=== PATIENT | male | born 1955 | race Caucasian/White ===

== ENCOUNTER → 2018-02-08 08:44 | Outpatient (CLI) | payer OTHER, SELFPAY ==
--- NOTE | 2018-02-08 08:50 | RAD_ITS ---
STUDY: X-RAY - CERVICAL SPINE REASON FOR EXAM: Male, 62 years old. Increasing neck pain. TECHNIQUE: 8 view(s) of the cervical spine were obtained including oblique and flexion and extension views. COMPARISON: None FINDINGS: Normal anterior atlantoaxial articulation. Normal odontoid process. Normal cervical lordosis. There is multi-level endplate spondylosis. Normal disc space heights. Normal visualized intervertebral neuroforamina. The soft tissue structures are unremarkable. RAD/Cerv Spine Obl/Flex/Ext Comp IMPRESSION: Spondylosis. Electronically Signed: Prabhjot Gardner MD at 14:10 EDT Tel [phone], Service support ,
== END ==
PROVIDERS: Family Provider Internal Medicine; PCP Internal Medicine; Visit Provider Internal Medicine
DX: M54.2 Cervicalgia (principal)
CPT/HCPCS: 72052

== ENCOUNTER 2018-03-05 08:00 | Outpatient (RCR) | payer OTHER, SELFPAY ==
--- NOTE | 2018-02-19 19:43 | HP.PTEVAL_ITS ---
Patient's Visit Information SHWETHA CODY is a 62 year old M referred to Physical Therapy by Mag Olmos with a diagnosis of Cervical Pain. Date of Evaluation: 02/19/18 Physical Therapist: Brie Archibald - Visit Plan Frequency: 2x /Week Duration: 4 Weeks Plan: Focus on s/s of scap, posture and modalities as needed for pain - Subjective Subjective: Patient reports that he injured his moya when he was young and fell flat on his back. He has been to the chiropractor for years but recently he doesn't feel like the relief is lasting so his MD suggested that he attempt PT. He has had x-rays which he was unaware of the results (spondylosis multi-level ). At the chiropractor he was just having manipulation adjustments no other treatment. Pain is gradually getting worse. Pain at its worst is an 8/10 agg by computer work- at his best he is 0/10 with eases being mornings and advil. Pain is at the base of his skull. It does not radiate. He reports pain with rotation. NO N/T or change in finger dexterity or lymphedema therapist. No TORREZ, dizziness or blurred vision. Sleep is not disturbed and he sleeps with one pillow. 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 PMHx: DM2, HTN Meds: statin, jardance, metformin, zolify, HTN Med - Objective Posture: Fh, RS, Increased kyphosis- CT Junction has protrusion- can not correct with verbal cues. Gait: rigid- no trunk rotation and little arm swing. Palpation: tender C3-occiput and suboccipitals. ROM: Shoulder/Elbow: WNL Cervical: flexion, ext: WNL. Rotation and SB: decreased by 25% and reports pain with each movement bilaterally. Strength: Cervical: 4+/5 isometrics Shoulder:5/5, Scap: fair. Speical Test: gentle compression: no change in s/s, Distraction: decreases s/s. - Goals Goal 1:: Patient will be I with HEP and progression Goal Time Frame: 4-6 Weeks Goal 2:: Patient will demo full cervical ROM with 0/10 pain Goal Time Frame: 4-6 Weeks Goal 3:: Patient will report 0/10 pain for 1 week Goal Time Frame: 4-6 Weeks - Rehabilitation Potential Physical Therapy Diagnosis: Patient presents with hypomobility- he has decreased strength, flex and muscualar endurance leading to poor posture and increased pain with mobility of the cervical spine Rehabilitation Potential: Fair - Anticipated Interventions Patient/Client Instruction: Educate patient on: Benefits of Fitness Program For the Purpose of:: To improve ability to perform ADL's Therapeutic Exercise to Include: Strength training, Body mechanics, Postural training, Passive ROM, Active ROM, Scapular Strength/Stabilization For the Purpose of:: To improve muscle performance and motor function Manual Therapy Techniques to Include: Soft tissue mobilization For the Purpose of:: To increase ROM TENS: Yes Cryotherapy (ice pack, ice massage): Yes Thermo therapy (hot pack): Yes Ultrasound (thermal/non thermal): Yes For the Purpose of:: To decrease pain Thank you for the opportunity to evaluate your patient. For Medicare and Medicare HMO plans, please review the plan of care and approve it. It will need to be FAXED BACK to us at [phone] for Medicare purposes. Please let me know if there are questions or concerns regarding this plan of care. Physician Signature: Date:
--- NOTE | 2018-03-19 08:16 | HP.PT.NRP ---
HP - Discharge Summary (1) - Patient Information SHWETHA CODY was seen in my office for initial evaluation on 02/19/18. The following Plan of Care was established for this patient: Initial Frequency: 2x /Week Initial Duration: 4 Weeks - Anticipated Interventions Patient/Client Instruction: Educate patient on: Benefits of Fitness Program For the Purpose of:: To improve ability to perform ADL's Therapeutic Exercise to Include: Strength training, Body mechanics, Postural training, Passive ROM, Active ROM, Scapular Strength/Stabilization For the Purpose of:: To improve muscle performance and motor function Manual Therapy Techniques to Include: Soft tissue mobilization For the Purpose of:: To increase ROM TENS: Yes Cryotherapy (ice pack, ice massage): Yes Thermo therapy (hot pack): Yes Ultrasound (thermal/non thermal): Yes For the Purpose of:: To decrease pain This patient was last seen in our office . Pertinent comments regarding their Physical therapy will appear below: Patient has not attended his last 3 physical therapy sessions and is appropriate to be d/c at this time- return to MD for further evaluation. At this point I will be discontinuing this patient from physical therapy. I would be happy to see this patient again in the future if found appropriate by the physician. Thank you! Brie Archibald
== END 2018-03-05 19:00 | disposition home or self-care (01) ==
LOC: PT 08:00
PROVIDERS: Family Provider Internal Medicine; PCP Internal Medicine; Visit Provider Internal Medicine
DX: M54.2 Cervicalgia (principal)
CPT/HCPCS: 97035; 97110; 97140; 97162

== ENCOUNTER → 2018-03-07 09:07 | Outpatient (CLI) | payer OTHER, SELFPAY ==
--- NOTE | 2018-03-07 09:11 | RAD_ITS ---
STUDY: X-RAY - LUMBAR SPINE REASON FOR EXAM: Male, 62 years old. Low back pain for one day. TECHNIQUE: 5 view(s) of the lumbar spine were obtained. COMPARISON: None FINDINGS: Normal lumbar lordosis. There is no substantial scoliosis. There is a normal alignment of the vertebrae. Normal vertebral bodies and endplates. Generalized mild disc narrowing and mild to minimal spondylitic endplate changes at most lumbar levels. Greater spondylitic endplate changes at L1-L2. Normal posterior elements. Atherosclerotic vascular calcifications. RAD/L/S Spine Min 4 Views IMPRESSION: Normal alignment of the lumbar spine without fracture, osteolytic or blastic bone lesion. Mild to moderate degenerative disc narrowing and spondylitic endplate changes and the pattern is described above. Electronically Signed: Eva Dickerson MD at 17:00 EDT , Service support ,
== END ==
PROVIDERS: Family Provider Internal Medicine; PCP Internal Medicine; Visit Provider Nurse Practitioner Gerontology
DX: M54.5 Low back pain (principal)
CPT/HCPCS: 72110

== ENCOUNTER 2018-06-25 09:30 | Outpatient (RCR) | payer OTHER, SELFPAY | END 2018-06-25 23:59 | LOC: DC 09:30 | PROVIDERS: Family Provider Internal Medicine; PCP Internal Medicine; Visit Provider Internal Medicine | DX: E11.9 Type 2 diabetes mellitus without complications (principal); Z71.3 Dietary counseling and surveillance | CPT/HCPCS: 97802; G0108 ==

== ENCOUNTER → 2020-02-04 15:21 | Outpatient (CLI) | payer OTHER, SELFPAY ==
[2020-01-13 08:55] VITALS: BMI 32.3
[2020-02-04 16:00] LABS: AST(SGOT) 18 U/L (15-37); Alanine Aminotransfer ALT/SGPT 41 U/L (16-61); Alkaline Phosphatase 69 U/L (45-117); Bilirubin, Direct 0.12 mg/dL (0.00-0.30); Globulin 3.3 g/dL (2.2-4.2); Protein, Total 7.3 g/dL (6.4-8.2)
[2020-02-06 16:08] LABS: CHOLESTEROL TOTAL 181 mg/dL (100-199); HDL-C 42 mg/dL (>39); HDL-P TOTAL 34.5 umol/L (>=30.5); SMALL LDL-P 1379 nmol/L (<=527); TRIGLYCERIDES 245 mg/dL (0-149)
[2020-02-06 19:08] LABS: INSULIN RESISTANCE SCORE 70 (<=45); LDL SIZE 19.7 nm (>20.5); LDL-C 90 mg/dL (0-99); LDL-P 1700 nmol/L (<1000)
== END ==
PROVIDERS: PCP Internal Medicine; Referring Provider Internal Medicine; Visit Provider Internal Medicine
DX: E78.5 Hyperlipidemia, unspecified (principal)
CPT/HCPCS: 80061; 80076; 83704

== ENCOUNTER → 2020-12-24 08:46 | Outpatient (CLI) | payer MEDICARE, OTHER, SELFPAY ==
[2020-01-13 08:55] VITALS: BMI 32.3
--- NOTE | 2020-12-24 08:53 | US_ITS ---
PROCEDURES: ULTRASOUND AORTA REASON FOR EXAM: Male, 65 years old. Family HX OF AORTIC ANEURYSM TECHNIQUE: Ultrasound evaluation of the aorta was performed with real-time and static ribeiro-scale imaging. COMPARISON: None. FINDINGS: There is atherosclerotic plaque formation of the abdominal aorta. Aorta measures: Proximal 2.1 cm. Middle 1.9 cm. Distal 1.9 cm. Aorta measure transversely: Proximal 2.7 cm. Middle 2.5 cm. Distal 1.6 cm. Right iliac artery measures: 0.9 cm. Right iliac artery measure transversely: 1.3 cm. Left iliac artery measures: 0.9 cm. Left iliac artery measure transversely: 1.1 cm. There is no demonstrated aneurysm.. US/Aorta IMPRESSION: Mild atherosclerotic plaques seen in the distal abdominal aorta. Electronically Signed: Prabhjot Gardner MD at 12:54 EDT , Service support ,
== END ==
PROVIDERS: PCP Internal Medicine; Referring Provider Internal Medicine; Visit Provider Internal Medicine
DX: Z86.79 Personal history of other diseases of the circulatory system (principal); Z82.49 Family history of ischemic heart disease and other diseases of the circulatory system
CPT/HCPCS: 76775

== ENCOUNTER → 2021-01-10 09:26 | Outpatient (CLI) | payer MEDICARE, OTHER, SELFPAY ==
[2020-01-13 08:55] VITALS: BMI 32.3
--- NOTE | 2021-01-10 13:12 | PFTCOMP ---
INTRODUCTION: The patient is a 65-year-old male that presents for pulmonary function studies secondary to a diagnosis of COPD. Bronchodilators were not used during testing. Respiratory therapy reports good patient effort. INTERPRETATION: Forced expiration spirometry demonstrates no evidence of a large airways obstructive ventilatory defect. Spirograms are of good quality but plateau gradually indicating slow emptying of the lungs. Body plethysmography was performed and reveals lung volumes to be within normal limits. Diffusing capacity by single breath CO is also within normal limits. IMPRESSION: Grossly normal pulmonary function studies.
== END ==
PROVIDERS: PCP Internal Medicine; Referring Provider Internal Medicine; Visit Provider Internal Medicine
DX: J44.9 Chronic obstructive pulmonary disease, unspecified (principal)
CPT/HCPCS: 94010; 94726; 94729

== ENCOUNTER → 2021-06-29 09:30 | Outpatient (CLI) | payer MEDICARE, OTHER, SELFPAY ==
[2021-06-29 10:13] LABS: Absolute Lymphocyte Count 2.81 X10^3/uL (0.83-4.51); Basophil# 0.08 X10^3/uL; Eosinophil# 0.27 X10^3/uL; Eosinophils% 3.4 % (0-5); Hematocrit 47.2 % (40-54); Hemoglobin 15.4 g/dL (13.0-16.5); Lymphocyte # 2.81 X10^3/ul (0.83-4.51); Lymphocyte % 35.9 % (19-41); Mean Corp Hgb Conc 32.6 g/dL (32-36); Mean Corpuscular Hgb 30.9 pg (27.0-32.0); Mean Corpuscular Volume 94.6 fL (80-94); Mean Platelet Vol. 10.1 fl (6.2-12.0); Monocyte# 0.68 X10^3/uL; Monocyte% 8.7 % (0-10); NRBC Flagged by Analyzer 0 % (0-5); Neutrophil # 3.96 X10^3/uL (2.7-7.7); Neutrophil % 50.6 % (47-70); Platelet Count 234 K/mm3 (150-450); RBC Distribution Width CV 13.6 % (11.6-14.6); RBC Distribution Width SD 47.5 fl (35.1-43.9); Red Blood Count 4.99 M/mm3 (4.6-6.2); White Blood Count 7.8 K/mm3 (4.4-11.0)
[2021-06-29 10:44] LABS: Hemoglobin A1c 11.7 % (3.8-5.6)
[2021-06-29 10:46] LABS: Anion Gap 7 (5-15); BUN 14 mg/dL (7-18); BUN/Creat Ratio 21.1 RATIO (10-20); Calcium,Total 8.8 mg/dL (8.5-10.1); Chloride 110 mmol/L (98-107); Creatinine, Serum 0.66 mg/dL (0.70-1.30); EST Glomerular Filtration Rate 127 mL/min (>60); Est Glom Filt Rate - Afr Amer 154 mL/min (>60); Glucose 181 mg/dL (74-106); Sodium Level 139 mmol/L (136-145)
== END ==
PROVIDERS: PCP Internal Medicine; Referring Provider Orthopaedic Surgery; Visit Provider Orthopaedic Surgery
DX: Z01.818 Encounter for other preprocedural examination (principal); E11.9 Type 2 diabetes mellitus without complications
CPT/HCPCS: 36415; 80048; 83036; 85025

== ENCOUNTER 2021-12-26 10:34 | Outpatient (CLI) | payer MEDICARE, OTHER, SELFPAY ==
[2021-12-26 12:53] LABS: AST(SGOT) 13 U/L (15-37); Alanine Aminotransfer ALT/SGPT 28 U/L (16-61); Albumin, Serum 3.9 g/dL (3.2-5.0); Alkaline Phosphatase 71 U/L (45-117); Anion Gap 7 (5-15); BUN 16 mg/dL (7-18); BUN/Creat Ratio 24.4 RATIO (10-20); Calcium,Total 9.5 mg/dL (8.5-10.1); Chloride 107 mmol/L (98-107); Cholesterol 104 mg/dL (200); Creatinine, Serum 0.66 mg/dL (0.70-1.30); EST Glomerular Filtration Rate 129 mL/min (>60); Est Glom Filt Rate - Afr Amer 156 mL/min (>60); Globulin 3.8 g/dL (2.2-4.2); Glucose 112 mg/dL (74-106); High Density Lipoprotein 39 mg/dL; Protein, Total 7.7 g/dL (6.4-8.2); Sodium Level 139 mmol/L (136-145); Triglycerides 106 mg/dL; Very Low Density Lipoprotein 21 mg/dL (5-40)
== END 2021-12-26 23:59 | disposition home or self-care (01) ==
LOC: BIMLAB 10:36
PROVIDERS: PCP Internal Medicine; Referring Provider Nurse Practitioner Family; Visit Provider Nurse Practitioner Family
DX: E11.29 Type 2 diabetes mellitus with other diabetic kidney complication (principal); Z79.4 Long term (current) use of insulin; R80.9 Proteinuria, unspecified; E78.1 Pure hyperglyceridemia
CPT/HCPCS: 36415; 80053; 80061

== ENCOUNTER → 2023-01-27 | Outpatient (CLI) | payer MEDICARE, SELFPAY ==
--- NOTE | 2023-01-27 08:57 | MRI_ITS ---
STUDY: MRI BRAIN WITHOUT CONTRAST REASON FOR EXAM: Male, 67 years old. ATAXIA, NONTRAUMATIC, IMPAIRMENT OF BALANCE TECHNIQUE: Standardized multiplanar fat and water weighted pulse sequences were obtained. COMPARISON: No relevant prior imaging available for comparison. HEMISPHERES, CEREBELLUM AND BRAINSTEM: No restricted diffusion to suggest an acute infarct. No acute parenchymal hemorrhage. No mass, vasogenic edema or midline shift. Mild parenchymal volume loss and small vessel ischemic disease changes. Infundibulum and pituitary have normal configuration. Midline structures appear normal. CSF SPACES: No acute extra-axial hemorrhage. No hydrocephalus. Basal cisterns are patent. No abnormal extra-axial fluid collection. VESSELS: There are normal flow voids noted in the great vessels at the skull base ORBITS AND PARANASAL SINUSES: Bilateral cataract repair. No acute orbital abnormality. Mild paranasal sinus mucosal thickening. No air-fluid levels. Mastoid air cells are clear. BONY ELEMENTS: Bony elements of the cranial vault, facial skeleton and skull base have normal appearance. SCALP AND SOFT TISSUES: Normal appearance of the soft tissues of the scalp and the visualized face MRI/Brain without Contrast IMPRESSION: No acute infarct or acute intracranial findings. Electronically Signed: Alexis Hermosillo MD at 23:05 EDT ,
== END | disposition home or self-care (01) ==
PROVIDERS: PCP Internal Medicine; Referring Provider Internal Medicine; Visit Provider Internal Medicine
DX: R26.89 Other abnormalities of gait and mobility (principal)
CPT/HCPCS: 70551

== ENCOUNTER 2023-01-30 13:00 | Outpatient (RCR) | payer MEDICARE, SELFPAY ==
--- NOTE | 2023-01-22 15:44 | HP.PTEVAL ---
Patient's Visit Information SHWETHA CODY is a 67 year old M referred to Physical Therapy by Dr. Mag Olmos DO with a diagnosis of balance impairment. Date of Evaluation: 01/22/23 Physical Therapist: Fran Santos DPT, OCS, CSCS - Visit Plan Frequency: 2x /Week Duration: 4-6 Weeks Plan: biodex balance test then 2x/week for 4 weeks for... 1. postural adn LE strength to HEP. 2. FW weight shift activities to HEP. 3. foam stance to HEP as safety allows. gastroc stretching. HS stretching given via HEP today. 30 4x daily. - Subjective As years have gone by, I feel less table when walking. No falls. bending and picking something up will make him feel unsteady. No c/o spinning. No leg numbness but he is diabetic. No regular ex outside, but walks some with dogs. This does not keep him from walking dogs. Some days worse than others. Lives with in one story, 2 steps to enter with railing. Going to basement is avoided because he cannot feel safe. 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 for 3 years. Hobbies : none but gardening but has not gotten going this year as weather has not, harder to bend. Not safe to bend over. Basic ADLs are done , dressing, bath, all I and no problem. - Objective Patient walks slowly back to PT but I and no AD needed. transfers chair and bed I. Avoids FW weight shift in stand and sit to stand with weight [id number] hindfoot. Steps completely avoids FW weight shift and pulls with UE ascending, only uses R descending adn no forefoot usage at strike. sensation is WFL to gross light touch. reflexes 1/3 patella and achilles B. Strength is 4 in ankles, 4+ in knees and 4- ion hip abd and ext and flexion. coordination to reciprocal tapping is fair. Unable to heel raise without holding on, able with weakness holding on. - Balance/Special Test Scores Functional Gait Assessment Score: 24 % Disability: 20.0000 CATSIB Score (Max score 120 seconds): 100 Lower Extremity Functional Score: 45 - Goals Goal 1:: Pt I in appropriate home LE and postural strength, FW weight shift exercises Goal Time Frame: 4-6 Weeks Goal 2:: Biodex balance test completed and reviewed with patient Goal Time Frame: 2 Weeks Goal 3:: 27/30 on FGA to diminish fallr isk Goal Time Frame: 4-6 Weeks Goal 4:: 30 seconds on foam ec romberg to utilize forefoot better. Goal Time Frame: 4-6 Weeks Goal 5:: LEFS 55 Goal Time Frame: 4-6 Weeks - Rehabilitation Potential Physical Therapy Diagnosis: balance impairment not using forefoot likely neuropathic. Rehabilitation Potential: Fair - Anticipated Interventions Patient/Client Instruction: Educate patient on: Condition, Plan of Care For the Purpose of:: To improve nutrient delivery to tissue, To improve muscle performance and motor function, To increase tolerance to activity/condition/position, To improve ability of physical actions for home/community/work/leisure Therapeutic Exercise to Include: Strength training, Balance training, Postural training, Flexibilty training For the Purpose of:: To increase tolerance to activity/condition/position, To improve ability of physical actions for home/community/work/leisure, To improve safety with gait Thank you for the opportunity to evaluate your patient. For Medicare and Medicare HMO plans, please review the plan of care and approve it. It will need to be FAXED BACK to us at [phone] for Medicare purposes. For Medicare only, by signing this I certify the plan of care. Please let me know if there are questions or concerns regarding this plan of care. Physician Signature: Date:
--- NOTE | 2023-01-30 13:22 | HP.PTCOM ---
PT Communication Note 01/30/[address] Mag Olmos, DO , Thank you for the referral of Uri to [facility] for balance assessment. I have enclosed a copy of the results for your review. In summation, he scored well on the Limits of stability test. He score 1.8 SD below the norm on the Fall risk Assessment he score 1+ standard deviations below the norm in most aspects of the Modified CTSIB. With these results in mind, I plan to see him 2x/week for 4 weeks oper our plan of care to teach home strength and balance and weight shift exercises and get to a home program. Thank you for this referral. Sincerely, Fran Santos DPT, OCS, CSCS Contact Information
--- NOTE | 2023-03-01 12:59 | HP.PTDCNRP_ITS ---
SHWETHA CODY was seen in my office for initial evaluation on 01/22/23. The following Plan of Care was established for this patient: Initial Frequency: 2x /Week Initial Duration: 4-6 Weeks Patient/Client Instruction: Educate patient on: Condition, Plan of Care For the Purpose of:: To improve nutrient delivery to tissue, To improve muscle performance and motor function, To increase tolerance to activity/condition/position, To improve ability of physical actions for home/c ommunity/work/leisure Therapeutic Exercise to Include: Strength training, Balance training, Postural training, Flexibilty training For the Purpose of:: To increase tolerance to activity/condition/position, To improve ability of physical actions for home/community/work/leisure, To improve safety with gait This patient was last seen in our office 01/30/23. Pertinent comments regarding their Physical therapy will appear below: Pt seen two visits of POC and cancelled or no showed for the next 5. at this point, i will discontinue him due to nonattendance. At this point I will be discontinuing this patient from physical therapy. I would be happy to see this patient again in the future if found appropriate by the physician. Thank you! Fran Santos, DPT, OCS, CSCS Balance/Gait/Functional tests - Balance/Special Test Scores Functional Gait Assessment Score: 24 % Disability: 20.0000 CATSIB Score (Max score 120 seconds): 100 Lower Extremity Functional Score: 45
== END 2023-01-30 19:00 | disposition home or self-care (01) ==
LOC: PT 13:00
PROVIDERS: PCP Internal Medicine; Referring Provider Internal Medicine; Visit Provider Internal Medicine
DX: R26.89 Other abnormalities of gait and mobility (principal)
CPT/HCPCS: 97161; 97750

== ENCOUNTER → 2023-06-13 | Outpatient (CLI) | payer MEDICARE, SELFPAY ==
--- NOTE | 2023-06-13 14:09 | NEURO_ITS ---
NCS and/or EMG Patient Report Ordering Doctor: Mag Olmos DATE OF SERVICE: 06/13/23 Uri presents for electrodiagnostic testing of the lower limbs. He reports bilateral lower extremity weakness and numbness. He has a history of insulin- dependent diabetes. Electrodiagnostic findings: Right peroneal motor nerve demonstrates borderline prolonged distal latency with reduced amplitude and reduced conduction velocity. Right tibial motor response demonstrates decreased conduction velocity. Left tibial motor response demonstrates decreased conduction velocity. Prolonged right peroneal F-wave. Borderline prolonged right and left tibial F-wave. Absent left peroneal motor response at the EDB. Left peroneal motor response measured at the tib anterior shows decreased conduction velocity. Left peroneal F wave was not obtained. H-reflex is prolonged bilaterally. Sensory responses are not obtainable. On needle EMG, motor unit action potentials of increased amplitude and duration noted bilaterally in the gastrocnemius and tibialis anterior. Electrodiagnostic assessment: This is an abnormal study in the lower limbs 1. 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 This may be secondary to poorly controlled diabetes. 2. No electrodiagnostic evidence is noted for lumbosacral radiculopathy. Multi Select Codes Neurology Neurology Interp Codes: 50652-47 Musc test done w/n test comp (interp) (2) and 57444-72 Nrv cndj test 11-12 studies (interp)
== END | disposition home or self-care (01) ==
PROVIDERS: PCP Internal Medicine; Referring Provider Internal Medicine; Visit Provider Internal Medicine
DX: R20.2 Paresthesia of skin (principal)
CPT/HCPCS: 95886; 95913

== ENCOUNTER 2024-01-21 12:58 | Observation (INO) | payer MEDICARE, SELFPAY ==
[2024-01-21] VITALS (9 sets, daily range): BP systolic 124–157; BP diastolic 67–89; PULSE 90–110; RESP 12–19; TEMP 36.6–36.7; O2SAT 95–99; BMI 31.9; BMI 30.3
--- NOTE | 2024-01-21 13:01 | CT_ITS ---
We are attempting to reach an attending provider to discuss findings. An addendum with communication details will be sent when the communication is complete. INDICATION: STROKE EXAMINATION: CT BRAIN - CT Head Stroke Protocol W/O Contrast Injection TECHNIQUE: Multiple axial images were obtained of the head without intravenous contrast. A radiation dose optimization technique was used for this scan. IV Contrast dosage and agent: None. RADIATION DOSAGE (If Supplied By Facility): CTDIvol = ( 44.99 ) mGy, DLP = ( 812.98 ) mGycm COMPARISON: No relevant prior comparison study available FINDINGS: BRAIN PARENCHYMA: No intra- or extra-axial hemorrhage. No evidence of acute infarct. No intracranial mass or mass effect. There is preservation of the ribeiro/white matter interface. Posterior fossa structures are unremarkable. Atherosclerotic calcifications of the cavernous internal carotid arteries. CSF SPACES: Mild diffuse atrophy appropriate for patient''s age. No hydrocephalus. Basal cisterns are patent. CALVARIUM, SKULL BASE, PARANASAL SINUSES AND MASTOID AIR CELLS: Mild mucosal thickening of the ethmoids and right maxillary sinuses. No discrete lytic or blastic abnormalities. ORBITS: Both globes, extraocular muscles, optic nerves and retrobulbar fat appear unremarkable. CT/STROKE Brain/Head without Cont IMPRESSION: No acute intracranial process. Electronically Signed: Jesus Boone MD at 13:27 EDT ,
--- NOTE | 2024-01-21 13:01 | CT_ITS ---
INDICATION: Slurred speech, TIA. EXAMINATION: CTA HEAD, AND CTA NECK TECHNIQUE: Noncontrast axial images were obtained of the brain. Subsequently, routine carotid CT angiogram protocol was performed without and with IV contrast. In addition, images were obtained of the [place] of [place]. NASCET criteria using the distal ICAs for comparison were used for evaluation of stenoses. 3D reconstructions were reviewed. A radiation dose optimization technique was used for this scan. IV Contrast dosage and agent: 100 cc of [id number]-[id number] COMPARISON: No relevant prior comparison study available FINDINGS: --CTA NECK: AORTIC ARCH AND BRANCHES: Normal anatomy, patent. RIGHT CCA: Atherosclerotic calcifications of the distal right common carotid artery with mild stenosis. RIGHT ICA: No occlusion, significant stenosis or dissection. LEFT CCA: Atherosclerotic calcifications of the distal left common carotid artery with mild stenosis. LEFT ICA: No occlusion, significant stenosis or dissection. RIGHT VERTEBRAL ARTERY: No occlusion, significant stenosis or dissection. LEFT VERTEBRAL ARTERY: No occlusion, significant stenosis or dissection. NECK SOFT TISSUES: Enlargement of the left lobe of the thyroid gland extending to the thoracic inlet. --CTA HEAD: --Anterior circulation: ICAs: Atherosclerotic calcifications of the cavernous internal carotid arteries with mild to moderate stenosis. ACAs: No significant stenosis at the visualized segments. ACOM: Present. MCAs: No significant stenosis at the visualized segments. --Posterior circulation: PCOMs: Patent bilaterally. batch roller operator: Moderate stenosis of the right posterior cerebral artery. The left side is unremarkable. BASILAR ARTERY: No significant stenosis. VERTEBRAL ARTERIES: No significant stenosis at the intradural/visualized segments. No evidence of intracranial aneurysm or vascular malformation. CT/STROKE CTA Head AND Neck W/Con IMPRESSION: 1. 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 2. Atherosclerotic calcifications of the cavernous internal carotid arteries with mild to moderate stenosis. 3. Otherwise no intracranial great vessel stenosis. 4. Atherosclerotic calcifications of the distal common carotid artery without significant stenosis. 5. Unremarkable ICAs and vertebral arteries bilaterally. N.B. : The above Results were Read Back by Jesus Boone MD to Mickey Plasencia MD, and understanding confirmed on 01/21/2024 13:38:47 (ET). Electronically Signed: Jesus Boone MD at 13:40 EDT ,
--- NOTE | 2024-01-21 13:20 | EDS_ITS ---
HPI History of Present Illness Chief Complaint: Neuro S/Sx Detail of Chief Complaint: Slurred speech at 11:30 AM today. Informant: patient Onset/Context/Timing Onset: Today Context: Sudden Onset Timing: Continuous Quality and Location: Positive for Left Leg Weakness Current Severity: Gone Maximum Severity: Mild Associated Symptoms Associated Symptoms: Negative for Headache, Nausea, Vomiting or Chest Pain Narrative Narrative: 68-year-old male history diabetes, COPD, hypertension high cholesterol. No prior history of stroke or mini stroke. No headache or recent head trauma. He is on no blood thinners. Patient was eating lunch today at [employer] at 11:30 AM when he had trouble with his speech. States it was slurred. He also had some mild left leg weakness both have completely resolved. Currently denies any symptoms. No prior history. Prior similar symptoms: No Recent Illness/Hospitalization: No PFSH COUNT INCLUDES THE [facility] Medical History Cataract COPD (chronic obstructive pulmonary disease) Diabetes Hearing problem High blood pressure High triglycerides Obesity Pneumonia Vitamin deficiency Home Medications Vitamin D 7,000 units PO DAILY 07/19/17 [History Last Taken Unknown] amlodipine 5 mg tablet 5 mg PO DAILY 07/19/17 [History Last Taken Unknown] flash glucose scanning reader (FreeStyle Channing 14 Day Combined [place]ocks) #1 ea 10/14/19 [Rx Last Taken Unknown] pentoxifylline 400 mg tablet,extended release ea PO 07/12/21 [History Last Taken Unknown] flash glucose sensor (FreeStyle Channing 14 Day Sensor kit) #6 ea 02/27/22 [Rx Last Taken Unknown] atorvastatin 80 mg tablet 80 mg PO 09/06/22 [History Last Taken Unknown] multivitamin (Daily Multi-Vitamin tablet) 1 tab PO DAILY 11/27/22 [History Last Taken Unknown] insulin degludec 200 unit/mL (3 mL) subcutaneous pen (Tresiba FlexTouch U-200 insulin) 40 unit (0.2 mL) subcut DAILY #9 mL 12/27/23 [Rx Last Taken Unknown] lisinopril 20 mg tablet 20 mg PO DAILY #90 tabs 12/27/23 [Rx Last Taken Unknown] pen needle, diabetic 33 gauge x 5/32 (Comfort EZ Pen Filley) #100 ea 12/27/23 [Rx Last Taken Unknown] Novolog FlexPen U-100 Insulin 100 unit/mL (3 mL) subcutaneous (insulin aspart U- 100) 30 unit (0.3 mL) subcut TID #81 mL 01/17/24 [Rx Last Taken Unknown] metformin 500 mg tablet 500 mg PO BID #90 tabs 01/17/24 [Rx Last Taken Unknown] Allergy/AdvReac Type Severity Reaction Status Date / Time No Known Allergies Allergy Verified 01/17/24 09:48 Family History Father Arthritis Cancer Diabetes Mother Age related osteoporosis Other Kidney disease Surgical History H/O hernia repair Social History Smoking Status: Former smoker alcohol intake: current alcohol intake frequency: a few times a month Alcohol type: beer substance use type: does not use what type of physical activity do you participate in: none ROS ROS ED ROS Narrative Denies recent illness. Review of Systems ROS Unobtainable: Denies due to encephalopathy Constitutional Constitutional ED: Denies chills or fever(s) Eyes Eyes: Denies blurry vision ENT ENT ED: Denies ear pain Cardiovascular Cardiovascular: Denies chest pain or palpitations Respiratory/Chest Respiratory/Chest: Denies cough or dyspnea Gastrointestinal Gastrointestinal: Denies abdominal pain, diarrhea, melena, nausea or vomiting Genitourinary Genitourinary ED: Denies dysuria or hematuria Musculoskeletal Musculoskeletal: Denies arthralgias or back pain Integumentary Denies abscess Neurologic Neurologic: Denies headache(s) Psychiatric Psychiatric: Denies anxiety Endocrine Endocrinology: Denies polydipsia or polyphagia Hematologic/Lymphatic Hematologic/Lymphatic: Denies easy bleeding, easy bruising or lymphadenopathy Allergic/Immunologic Allergic/Immunologic ED: Denies mouth swelling or urticaria EXAM Physical Exam Narrative Exam Narrative: Well-appearing 68-year-old male. Sitting upright in bed. Vital signs stable afebrile. at bedside. H EENT exam unremarkable. Pupils are reactive light. Extra motions are intact. No facial droop. Currently normal speech. Neck nontender. No lymphadenopathy. Lungs clear to auscultation bilaterally. Heart regular rhythm rate about 100 no murmur. Chest wall and ribs nontender. Abdomen soft nontender. Back nontender. Moving all 4 extremities. 5 out of 5 plaster die maker strength. Dorsi plantarflexion intact. Neurologically is awake and alert. Answering questions following commands. NIH score 0. Normal speech. No facial droop. Normal plaster die maker strength bilaterally. Normal dorsi plantarflexion. No drift. Const Vital Signs: 01/21/24 12:58 01/21/24 13:01 01/21/24 12:58 Temperature 97.8 F Temperature Source Temporal Pulse Rate 110 H 110 H Respiratory Rate 14 12 Blood Pressure 147/77 H 146/67 H Blood Pressure Mean 100 93 Pulse Ox 97 97 Oxygen Delivery Method Room Air Room Air Room Air 01/21/24 12:58 01/21/24 13:15 01/21/24 13:47 Temperature 97.8 F Temperature Source Temporal Pulse Rate 110 H 110 H 108 H Respiratory Rate 14 19 H 16 Blood Pressure 147/77 H 146/67 H 134/83 H Blood Pressure Mean 100 93 100 Pulse Ox 97 95 98 Oxygen Delivery Method Room Air Room Air Room Air 01/21/24 14:01 Temperature Temperature Source Pulse Rate 99 Respiratory Rate 18 Blood Pressure 143/89 H Blood Pressure Mean 107 Pulse Ox 99 Oxygen Delivery Method Room Air Positive well nourished and well developed; Negative for cachectic, contractures or unkempt General Appearance ED: well developed and NAD; Negative for unkempt, cachectic or contractures Nutritional Appearance: Negative for cachectic HEENT Reports moist mucous membranes; Denies dry mucous membranes atraumatic; Negative for trauma Nose: Negative for other Mouth ED: No dry mucous membranes Mouth: No dry mucous membranes Eyes PERRL and EOMs intact bilaterally General Eye ED: Negative for pale conjunctiva, scleral icterus or other Neck no lymphadenopathy, supple and no JVD General: Negative for tenderness Thyroid: Negative for other Chest Wall inspection of chest normal and palpation of chest normal Chest: Negative for other Resp normal respiratory effort and clear to auscultation bilaterally Effort and Inspection: Negative for retractions Auscultation: Negative for rales, rhonchi, wheezes or diminished lung sounds Cardio no murmurs Rate: regular rate Rhythm: regular rhythm Heart Sounds: Negative for S1 normal or S2 normal GI normal to inspection, nondistended, normoactive bowel sounds, soft to palpation, non-tender, non-distended and no masses Inspection: Negative for abdominal distention Auscultation: normoactive bowel sounds Palpation: Negative for tender, guarding or rebound tenderness present Back/Spine no CVA tenderness General Back: Negative for CVA tenderness Cervical Spine: Negative for cervical spine tenderness Thoracic Spine / Upper Back: Negative for thoracic spinal tenderness Lumbar Spine / Lower Back: Negative for lumbar spinal tenderness Extremity normal to inspection General Extremety ED: Negative for deformity, edema or tenderness General Extremity: Negative for deformity or edema Neuro oriented x3, CN's II-XII intact bilaterally and no sensory deficits noted Neuro Narrative: NIH score equals 0. Sensorium / Orientation: alert, oriented to person, oriented to place and oriented to time; Negative for orientation impaired, confused, lethargic or stuporous Speech: speech normal Motor Exam: strength 5/5 throughout Psych mental status grossly normal Appearance: Negative for unkempt Attitude: No agitated Mood & Affect: Negative for depressed, anxious or tearful Attention / Concentration: Negative for other Skin no wounds General Skin Exam: Negative for jaundice Lesions: no lesions Rashes: no rashes NIHSS NIHSS Initial: 1a Level of Consciousness: 0 1b LOC Questions (Score 2 if aphasic/stupor): 0 1c LOC Commands (Only score 1st attempt): 0 2 Best Gaze (If aphasic, use reflexive mvmts.): 0 3 Visual: 0 4 Facial Palsy: 0 5 Motor Arm Right (UN = amputation/fusion): 0 5 Motor Arm Left: 0 6 Motor Leg Right: 0 6 Motor Leg Left: 0 7 Limb ataxia (Only + if out of proportion): 0 8 Sensory (Aphasia/stupor=0 or 1, coma=2): 0 9 Best Language: 0 10 Dysarthria (mute, coma=2, intubated=UN): 0 11 Extinction and Inattention (only scored if +): 0 Total Score: 0 MDM MDM MDM Narrative Medical decision making narrative: 68-year-old male history of diabetes with slurred speech today 1130 that is since resolved. He will be a stroke team workup with a CT and CTA post the normal labs. Will be admitted. Currently his NIH is 0. He has no current physical findings. He is not a TNK candidate at this time. Repeat exam at 1:35 PM unchanged. NIH still 0. [facility] neurology beamed into the room and agrees with the current plan for admission for TIA. Patient and are comfortable with the plan. Repeat exam at 2:05 PM he is doing well. History & Record Review Discussion w/independent historian: Patient Additional record(s) reviewed:: Prior inpatient record, Prior outpatient record, Prior ED visit and Prior labs Lab Data Attestation: I reviewed the patient's lab results. Lab results narrative: CBC shows white count of 10. H&H is 16 and 49. Platelets 282. PT/INR 13 and 1. PTT 29. Electrolytes show gap 7. Normal BUN of 17 creatinine 1. Glucose 222. Troponin normal at 8. Labs: Laboratory Results - last 24 hr 01/21/24 13:05 WBC 10.8 RBC 5.50 Hgb 16.3 Hct 49.8 MCV 90.5 MCH 29.6 MCHC 32.7 RDW Std Deviation 43.1 RDW Coeff of Mike 13.0 Plt Count 282 MPV 10.6 Immature Gran % (Auto) 0.600 Neut % (Auto) 57.8 Lymph % (Auto) 29.6 [place] % (Auto) 9.1 Eos % (Auto) 2.2 Baso % (Auto) 0.7 Absolute Neuts (auto) 6.2 Absolute Lymphs (auto) 3.18 Nucleated RBC % 0 PT 13.8 INR 1.1 APTT 29.3 Sodium 137 Potassium 4.1 Chloride 102 Carbon Dioxide 28.0 Anion Gap 7 BUN 17 Creatinine 1.01 Estim Creat Clear Calc 78.61 Est GFR (MDRD) Af Amer 94 Est GFR (MDRD) Non-Af 78 BUN/Creatinine Ratio 16.8 Glucose 222 H Calcium 9.9 Troponin I High Sens 8 Radiography Chest X-Ray - ED: 1 View Diagnostic Testing: Clinical Impression(s) from Imaging Studies Brain CT 01/21/24 13:01 IMPRESSION: No acute intracranial process. Electronically Signed: Jesus Boone MD at 13:27 EDT , ADDENDUM: 01/21/24 5543 IMPRESSION: No acute intracranial process. N.B. : The above Results were Read Back by Jesus Boone MD to Mickey Plasencia MD, and understanding confirmed on 01/21/2024 13:38:52 (ET). Electronically Signed: Jesus Bonoe MD at 13:27 EDT , Head/Neck CTA 01/21/24 13:01 IMPRESSION: 1. 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 2. Atherosclerotic calcifications of the cavernous internal carotid arteries with mild to moderate stenosis. 3. Otherwise no intracranial great vessel stenosis. 4. Atherosclerotic calcifications of the distal common carotid artery without significant stenosis. 5. Unremarkable ICAs and vertebral arteries bilaterally. N.B. : The above Results were Read Back by Jesus Boone MD to Mickey Plasencia MD, and understanding confirmed on 01/21/2024 13:38:47 (ET). Electronically Signed: Jesus Boone MD at 13:40 EDT , ADDENDUM: 01/21/24 1347 IMPRESSION: 1. 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 2. Atherosclerotic calcifications of the cavernous internal carotid arteries with mild to moderate stenosis. 3. Otherwise no intracranial great vessel stenosis. 4. Atherosclerotic calcifications of the distal common carotid artery without significant stenosis. 5. Unremarkable ICAs and vertebral arteries bilaterally. N.B. : The above Results were Read Back by Jesus Boone MD to Mickey Plasencia MD, and understanding confirmed on 01/21/2024 13:38:47 (ET). Electronically Signed: Jesus Boone MD at 13:40 EDT , Rhythm Strip Rhythm Strip: Sinus Tach Rate: 110 Ectopy: None EKG Initial EKG: Attestation: I personally reviewed and interpreted this EKG as follows: Interpretation: Sinus Rhythm, No Acute Injury Pattern and Sinus Tachycardia Comments: Sinus tachycardia rate of 110 no acute signs of NH, ischemia nor dysrhythmia. Discharge Plan Triage Chief Complaint: Neuro S/Sx ED Provider: Mickey Plasencia Dx/Rx/DC Orders Clinical Impression: Transient ischemic attack, History of hypertension, History of diabetes mellitus Prescriptions: No Action (DME) FreeStyle Channing 14 Day Combined [place]ocks Misc See Rx Instructions .ROUTE .MEDSUPPLY Qty: 1 0RF Rx Instructions: As directed pentoxifylline 400 mg tablet extended release PO Patient Comments: TAKE 1 TABLET BY MOUTH EVERY DAY (DME) FreeStyle Channing 14 Day Sensor Kit See Rx Instructions .ROUTE .MEDSUPPLY Qty: 6 3RF Rx Instructions: As directed atorvastatin 80 mg tablet 80 mg PO multivitamin [Daily Multi-Vitamin] Tablet 1 tab PO DAILY insulin aspart U-100 [Novolog FlexPen U-100 Insulin] 100 unit/mL (3 mL) insulin pen 30 unit subcut TID MDD 95 Qty: 81 1RF metformin 500 mg tablet 500 mg PO BID Qty: 90 1RF amlodipine 5 MG tablet 5 mg PO DAILY Vitamin D 7,000 units PO DAILY Tresiba FlexTouch U-200 200 unit/mL (3 mL) insulin pen 40 unit SC DAILY Qty: 9 6RF lisinopril 20 mg tablet 20 mg PO DAILY Qty: 90 1RF (DME) Comfort EZ Pen Filley 33 gauge x 5/32 needle See Rx Instructions .ROUTE .MEDSUPPLY Qty: 100 6RF Rx Instructions: 4 times daily Primary Care Provider: Mag Olmos Referrals: Mag Olmos DO [Primary Care Provider] - Disposition Disposition: Acute Care Hospital [facility]
--- NOTE | 2024-01-21 13:25 | ED.RN ---
Note to ammend times due to computer issues: 1245 pt arrived 1252 stroke alert called 1254 first call to [facility] 1255 blood sugar, vs and wt, iv obtained. [address], second call to [facility], is on with another stroke alert and then will beam in to see this pt.
[2024-01-21 13:31] LABS: Absolute Lymphocyte Count 3.18 X10^3/uL (0.83-4.51); Absolute Neutrophil Count 6.2 X10^3/uL (2.0-7.7); Basophil# 0.07 X10^3/uL; Basophil% 0.7 % (0-1); Eosinophil# 0.24 X10^3/uL; Eosinophils% 2.2 % (0-5); Hematocrit 49.8 % (40-54); Hemoglobin 16.3 g/dL (13.0-16.5); Lymphocyte # 3.18 X10^3/ul (0.83-4.51); Lymphocyte % 29.6 % (19-41); Mean Corp Hgb Conc 32.7 g/dL (32-36); Mean Corpuscular Hgb 29.6 pg (27.0-32.0); Mean Corpuscular Volume 90.5 fL (80-94); Mean Platelet Vol. 10.6 fl (6.2-12.0); Monocyte# 0.98 X10^3/uL; Monocyte% 9.1 % (0-10); NRBC Flagged by Analyzer 0 % (0-5); Neutrophil # 6.23 X10^3/uL (2.7-7.7); Neutrophil % 57.8 % (47-70); Platelet Count 282 K/mm3 (150-450); RBC Distribution Width SD 43.1 fl (35.1-43.9); White Blood Count 10.8 K/mm3 (4.4-11.0)
[2024-01-21 13:42] LABS: Anion Gap 7 (5-15); BUN 17 mg/dL (7-18); BUN/Creat Ratio 16.8 RATIO (10-20); Calcium,Total 9.9 mg/dL (8.5-10.1); Chloride 102 mmol/L (98-107); Creatinine, Serum 1.01 mg/dL (0.70-1.30); EST Glomerular Filtration Rate 78 mL/min (>60); Est Glom Filt Rate - Afr Amer 94 mL/min (>60); Estimated Creatinine Clearance 78.61 ml/min; Glucose 222 mg/dL (74-106); Potassium 4.1 mmol/L (3.5-5.1); Sodium Level 137 mmol/L (136-145); Troponin-I HS 8 pg/mL (3.0-78.0)
[2024-01-21 13:44] LABS: International Normalized Ratio 1.1; Partial Thromboplast Time 29.3 Seconds (24.1-36.2); Prothrombin Time (Protime)PT. 13.8 SECONDS (11.7-14.9)
--- NOTE | 2024-01-21 14:34 | PCM.HP.STD ---
HPI - General General Date of Admission: 01/21/24 Date of Service: 01/21/24 Chief Complaint: Slurred speech, LLE weakness. HPI Narrative The patient is a 68 y/o M w/ PMHx: Anxiety and Depression, Obesity, HTN, HLD, COPD, Diabetes mellitus type II, Former tobacco use who presents to the [facility] ED on 01/21/24 with history of onset of slurred speech at approximately 11:30 AM on day of presentation noting that he could formation ideas but was having difficulty expressing them with chronic unchanged LLE weakness secondary to diabetic neuropathy noted to come on suddenly while eating lunch at [employer] when he initially noted to have difficulty with the speech with no history of recent trauma or fall not on any blood thinners with both reportedly completely resolving but given symptoms prompted immediate ED evaluation. NIH stroke scale upon ED presentation per ED physician 0. who is present notes he is currently back to his baseline. Workup in the ED included T97.8, heart rate 110, BP 147 or 77, respiratory rate 14, 9 7% on room air with most recent repeat vital signs heart rate 99, BP 143/89, respiratory rate 18, 99% on room air, CBC with WBC 10.8, hemoglobin 16.3, platelet 282 without marked shift, unremarkable coags, BMP unremarkable aside glucose 222, troponin 8, CT brain with no acute intracranial findings, CTA head and neck with moderate stenosis right posterior cerebral artery, as carotic calcifications cavernous internal carotid arteries with mild to moderate stenosis, otherwise no intracranial great vessel stenosis, atherosclerotic calcifications in the distal common carotid artery without significant stenosis, unremarkable ICAs and vertebral arteries bilateral, EKG with sinus tachycardia with no evidence of ischemia. In the ED patient ministered full-strength aspirin therapy. [facility] Medical History (Updated 01/21/24 @ 20:[address] Dolores Funk MD) Cataract COPD (chronic obstructive pulmonary disease) Diabetes Hearing problem High triglycerides HLD (hyperlipidemia) HTN (hypertension) Obesity Vitamin deficiency Home Medications amlodipine 5 mg tablet 5 mg PO DAILY 07/19/17 [History Last Taken 01/21/24] flash glucose scanning reader (CultureAlley Channing 14 Day Lucas) #1 ea 10/14/19 [Rx Last Taken Unknown] pentoxifylline 400 mg tablet,extended release 400 mg PO DAILY 07/12/21 [History Last Taken 01/21/24] flash glucose sensor (FreeStyle Channing 14 Day Sensor kit) #6 ea 02/27/22 [Rx Last Taken Unknown] atorvastatin 80 mg tablet 80 mg PO DAILY 09/06/22 [History Last Taken 01/21/24] multivitamin (Daily Multi-Vitamin tablet) 1 tab PO DAILY 11/27/22 [History Last Taken 01/21/24] lisinopril 20 mg tablet 20 mg PO DAILY #90 tabs 12/27/23 [Rx Last Taken 01/21/24] pen needle, diabetic 33 gauge x 5/32 (Comfort EZ Pen Maxwell) #100 ea 12/27/23 [Rx Last Taken Unknown] cholecalciferol (vitamin D3) 125 mcg (5,000 unit) tablet (Vitamin D3) 125 mcg PO QODAY 01/21/24 [History Last Taken 01/21/24] diclofenac sodium 1 % topical gel (Arthritis Pain (diclofenac)) 4 g topical Q3H PRN NEUROPATHY 01/21/24 [History Last Taken 01/21/24] duloxetine 60 mg capsule,delayed release 60 mg PO DAILY 01/21/24 [History Last Taken 01/21/24] insulin aspart U-100 100 unit/mL (3 mL) subcutaneous pen (Novolog FlexPen U-100 Insulin aspart) 1 sliding scale dose subcut TID 01/21/24 [History Last Taken 01/21/24] insulin degludec 200 unit/mL (3 mL) subcutaneous pen (Tresiba FlexTouch U-200 insulin) 55 unit subcut DAILY 01/21/24 [History Last Taken 01/21/24] metformin 500 mg tablet 1,000 mg PO BID 01/21/24 [History Last Taken 01/21/24] Allergy/AdvReac Type Severity Reaction Status Date / Time No Known Allergies Allergy Verified 01/17/24 09:48 Family History Father Arthritis Cancer Diabetes Mother Age related osteoporosis Other Kidney disease Surgical History H/O hernia repair Social History (Updated 01/21/24 @ 20:[address] Dolores Funk MD) household members: spouse Smoking Status: Former smoker alcohol intake: current alcohol intake frequency: a few times a month Alcohol type: beer substance use type: does not use what type of physical activity do you participate in: none ROS ROS Narrative Admission Review of Systems: CONSTITUTIONAL: No weight loss, fever, chills, + weakness or fatigue. HEENT: Eyes: No visual loss, blurred vision, double vision or yellow sclerae. Ears, Nose, Throat: No hearing loss, sneezing, congestion, runny nose or sore throat. SKIN: No rash or itching, lesions, wounds. CARDIOVASCULAR: No chest pain, chest pressure or chest discomfort, palpitations, edema, orthopnea, syncopal events. RESPIRATORY: No shortness of breath, cough or sputum, wheezing, hemoptysis. GASTROINTESTINAL: No anorexia, nausea, vomiting or diarrhea, abdominal pain, melena, BRBPR. GENITOURINARY: No dysuria, frequency, urgency or retention. NEUROLOGICAL: + Transient slurred speech/expressive aphasia, chronic neuropathy w/ chronic LLE weakness/debility unchanged. No headache, dizziness, syncope, paralysis, ataxia, focal weakness, change in bowel or bladder control, seizure. MUSCULOSKELETAL: + muscle, back pain, joint pain or stiffness. HEMATOLOGIC: No anemia, bleeding or bruising. LYMPHATICS: No enlarged nodes. No history of splenectomy. PSYCHIATRIC: No history of depression or anxiety. ENDOCRINOLOGIC: No reports of sweating, cold or heat intolerance. No polyuria or polydipsia. ALLERGIES: No history of asthma, hives, eczema or rhinitis. Vital Signs Vital Signs Vital Signs: 01/21/24 12:58 01/21/24 13:01 01/21/24 12:58 Temperature 97.8 F Temperature Source Temporal Pulse Rate 110 H 110 H Respiratory Rate 14 12 Blood Pressure 147/77 H 146/67 H Blood Pressure Mean 100 93 Pulse Ox 97 97 Oxygen Delivery Method Room Air Room Air Room Air 01/21/24 12:58 01/21/24 13:15 01/21/24 13:47 Temperature 97.8 F Temperature Source Temporal Pulse Rate 110 H 110 H 108 H Respiratory Rate 14 19 H 16 Blood Pressure 147/77 H 146/67 H 134/83 H Blood Pressure Mean 100 93 100 Pulse Ox 97 95 98 Oxygen Delivery Method Room Air Room Air Room Air 01/21/24 14:01 Temperature Temperature Source Pulse Rate 99 Respiratory Rate 18 Blood Pressure 143/89 H Blood Pressure Mean 107 Pulse Ox 99 Oxygen Delivery Method Room Air Weight Weight: 216 lb 4.375 oz Body Mass Index (BMI) 31.9 Physical Exam Narrative Physical Examination: General: Awake, alert, oriented x 3 and cooperative, seated upright in the ED bed in no apparent distress, agrees patient back at his baseline. Skin: Normal color, normal turgor, no icterus, no cyanosis. HEENT: AT/NC, EOMI, PERRLA, MMM, no carotid bruits or JVD noted; however, thickened neck makes evaluation difficult. Lungs: CTA bilaterally, moderate effort, mild decrease BL bases, no rales, ronchi or wheezing. Heart: Regular rate and rhythm; no gallop, rub audible. Abdomen: Soft, obese, NTTP, ND, distant normal BS, no appreciated HSM. Extremities: No cyanosis, no marked clubbing, mild ankle non-pitting edema. Neurological: Patient awake, alert, oriented as noted, cognitive function intact; pupils equally reactive to light and accommodation, cranial nerves grossly normal, moving all 4 extremities, no focal deficits, strength preserved, FTN and HTS intact, equivocal babinski, speech appropriate and fluid, sensation chronically altered LLE, no drift or marked weakness LLE despite patient complaints. Psychiatric: Affect appears fatigued otherwise normal, no acute evidence of depressive or anxiety feelings. Results Lab / Micro Data 01/21/24 13:05 01/21/24 13:05 Labs: Laboratory Results - last 24 hr 01/21/24 13:05: WBC 10.8, RBC 5.50, Hgb 16.3, Hct 49.8, MCV 90.5, MCH 29.6, MCHC 32.7, RDW Std Deviation 43.1, RDW Coeff of Mike 13.0, Plt Count 282, MPV 10.6, Immature Gran % (Auto) 0.600, Neut % (Auto) 57.8, Lymph % (Auto) 29.6, Ritchie % (Auto) 9.1, Eos % (Auto) 2.2, Baso % (Auto) 0.7, Absolute Neuts (auto) 6.2, Absolute Lymphs (auto) 3.18, Nucleated RBC % 0, PT 13.8, INR 1.1, APTT 29.3, Sodium 137, Potassium 4.1, Chloride 102, Carbon Dioxide 28.0, Anion Gap 7, BUN 17, Creatinine 1.01, Estim Creat Clear Calc 78.61, Est GFR (MDRD) Af Amer 94, Est GFR (MDRD) Non-Af 78, BUN/Creatinine Ratio 16.8, Glucose 222 H, Calcium 9.9, Troponin I High Sens 8 Rhythm Strip Rhythm Strip: Sinus Tach Rate: 110 Ectopy: None Imaging Radiology Impression Brain CT 01/21/24 13:01 IMPRESSION: No acute intracranial process. Electronically Signed: Jesus Boone MD at 13:27 EDT , ADDENDUM: 01/21/24 1345 IMPRESSION: No acute intracranial process. N.B. : The above Results were Read Back by Jesus Boone MD to Mickey Plasencia MD, and understanding confirmed on 01/21/2024 13:38:52 (ET). Electronically Signed: Jesus Boone MD at 13:27 EDT , Head/Neck CTA 01/21/24 13:01 IMPRESSION: 1. 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 2. Atherosclerotic calcifications of the cavernous internal carotid arteries with mild to moderate stenosis. 3. Otherwise no intracranial great vessel stenosis. 4. Atherosclerotic calcifications of the distal common carotid artery without significant stenosis. 5. Unremarkable ICAs and vertebral arteries bilaterally. N.B. : The above Results were Read Back by Jesus Boone MD to Mickey Plasencia MD, and understanding confirmed on 01/21/2024 13:38:47 (ET). Electronically Signed: Jesus Boone MD at 13:40 EDT , ADDENDUM: 01/21/24 1347 IMPRESSION: 1. 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 2. Atherosclerotic calcifications of the cavernous internal carotid arteries with mild to moderate stenosis. 3. Otherwise no intracranial great vessel stenosis. 4. Atherosclerotic calcifications of the distal common carotid artery without significant stenosis. 5. Unremarkable ICAs and vertebral arteries bilaterally. N.B. : The above Results were Read Back by Jesus Boone MD to Mickey Plasencia MD, and understanding confirmed on 01/21/2024 13:38:47 (ET). Electronically Signed: Jesus Boone MD at 13:40 EDT , Assessment & Plan Assessment/Plan (1) Transient ischemic attack: PLAN: Plan The patient is a 68 y/o M w/ PMHx: Anxiety and Depression, Obesity, HTN, HLD, COPD, Diabetes mellitus type II, Former tobacco use who presents to the [facility] ED on 01/21/24 with history of onset of slurred speech at approximately 11:30 AM on day of presentation noting that he could formation ideas but was having difficulty expressing them with chronic unchanged LLE weakness secondary to diabetic neuropathy noted to come on suddenly while eating lunch at [employer] when he initially noted to have difficulty with the speech with no history of recent trauma or fall not on any blood thinners with both reportedly completely resolving but given symptoms prompted immediate ED evaluation. #1. Transient slurred speech, left lower extremity weakness both resolved concerning for TIA: Will admit to PCU, will obtain MRI Brain, ECHO, PT/OT/Speech/Nutrition evaluation per protocol. Will allow permissive HTN, maintain on asa, continue home statin w/ AM FLP, fall precautions. Mag, TSH, FLP, HgbA1c requested. Maintain on fall and aspiration precautions. Will request continued neurology consultation. #2. Diabetes mellitus type II with chronic neuropathy with PVD: Hold oral home regimen, continue home insulin regimen, hemoglobin A1c requested, nutrition consulted for stroke protocol additionally, ADA diet, accu checks w/ ISS. Patient is on pentoxifylline which will be continued. #3. Chronic COPD: Not on any chronic inhalers, will place on ATC budesonide therapy, PRN albuterol, HOB, IS parameters. #4. Anxiety and depression: We will continue patient on duloxetine regimen. #5. Hypertension: Will maintain on permissive hypertension given presentation #1 with as needed agents per stroke protocol. #6. Hyperlipidemia: Continue home statin regimen. AM FLP. #7. Former tobacco use: Encourage continued tobacco cessation. #8. Obesity: Weight loss and lifestyle changes encouraged. #9. DVT prophylaxis: Lovenox. #10. CODE status: Patient HCPOA and living will are not in place but his who is present he notes would be his decision maker if necessary. Discussed CODE status at length including difference between FULL code, DNR-CCA and DNR-CC status. Following discussions about the differences in these status, requested Full Code status. Advanced Care Planning Face to Face Time: 16 minutes. Charges/Coding Visit Charges Inpatient E&M: 14787 Init Hosp L2 Procedures Hospitalists Procedures: 78847 Advncd Care Plan 30 Min
--- NOTE | 2024-01-21 14:34 | CHAPLAIN ---
Type of Pastoral Visit ___ Initial Visit ___ Follow-up Visit ___ On-call Visit ___ General Patient Visit ___ Spiritual Assessment ___ Family Conference ___ Bereavement _x__ Rapid Response ___ Code Blue ___ Other (describe below) Pastoral Care Referral From ___ Patient ___ Family ___ Nurse ___ Physician ___ Painting Machine Operator ___ Brick [place]imney Supervisor _x__ Other (describe below) Sacrament/Intervention _x__ Active listening ___ Anointing ___ Methodist ___ Bereavement ___ Communion ___ Natalya exploration ___ ___ Life review ___ Prayer ___ Reconciliation ___ Sacrament of Sick _x__ Supportive presence ___ Wedding ___ Other (describe below) Pastoral Comments responded to stroke alert and found the patient had already been taken to CT; spouse is in the room and is offered presence, beverages, and support; spouse speaks of how it works in the hospital and I'm not concerned as I've been through this before; spouse denies any needs at this time
--- NOTE | 2024-01-21 14:35 | RAD_ITS ---
INDICATION: Neuro deficit, acute, stroke suspected EXAMINATION/TECHNIQUE: X-RAY - XR Chest 1 View COMPARISON: No relevant prior comparison study available FINDINGS: LINES/DEVICES: None. LUNGS: No consolidation, edema or effusion. No pneumothorax. MEDIASTINUM AND CARDIOVASCULAR STRUCTURES: Cardiac silhouette not enlarged. Central airways and mediastinal contour are unremarkable. BONES AND SOFT TISSUES: No demonstrated acute osseous changes. RAD/Chest 1 View IMPRESSION: No radiographic evidence of acute cardiopulmonary disease. Electronically Signed: Jesus Boone MD at 15:16 EDT ,
[2024-01-21] MEDS: Aspirin 325 MG Tablet PO (15:29)
--- NOTE | 2024-01-21 16:18 | MRI_ITS ---
STUDY: MRI BRAIN WITHOUT CONTRAST REASON FOR EXAM: Male, 68 years old. TIA TECHNIQUE: Standardized multiplanar fat and water weighted pulse sequences were obtained. COMPARISON: CT of the brain January 22, 2024 MRI of the brain January 27, 2023 FINDINGS: Normal size of the ventricles and extra-axial spaces for the patient''s age. Normal white matter tracts of the supratentorial brain. Normal bilateral basal ganglia. Normal thalami. There is no extra-axial fluid accumulation. Normal flow voids within the major intracranial circulation suggesting patency by spin echo criteria. Normal sella turcica, pituitary gland, infundibular stalk, optic chiasm and hypothalamus. Normal tectal plate and pineal gland. Normal midbrain, jv and medulla. Normal cerebellum. Normal basal cisterns. Normal bilateral temporal bones. Normal bilateral internal auditory canals. Postsurgical changes of the orbits. Mild mucosal thickening of the bilateral maxillary ethmoid, right sphenoid and left frontal sinuses. Normal calvarium and skull base. Normal visualized soft tissue structures. Normal visualized upper cervical spine. No significant change since prior exam MRI/Brain without Contrast IMPRESSION: Mild periventricular white matter ischemic changes without evidence for acute infarct Electronically Signed: George Rebollar MD at 19:44 EDT ,
--- NOTE | 2024-01-21 16:18 | ECHOCS_ITS ---
Reason For Study: TIA/CVA Procedure This was a 2D Doppler, Color Flow transthoracic echocardiogram. The study was technically difficult. Contrast injection was performed. Exam performed portable in patient room. Left Ventricle Normal LV size. Left ventricular systolic function is normal. The estimated ejection fraction is 55 %. Normal diastology for age. Right Ventricle Normal RV size. Normal systolic function. Atria The left and right atria are normal. Bubble contrast study negative for right to left interatrial shunt. Mitral Valve Mild mitral annular calcification. There is no mitral valve stenosis. Tricuspid Valve Normal tricuspid valve. Unable to estimate RV systolic pressure due to insufficient tricuspid regurgitant envelope. Trivial tricuspid valve insufficiency. Aortic Valve Trisinus/trileaflet aortic valve. Mild focal aortic valve calcification. Aortic sclerosis, no stenosis. Pulmonic Valve The pulmonic valve is not well visualized. Mild (1+) pulmonic valve insufficiency. Great Vessels Normal aortic root. Pericardium/Pleural Trivial pericardial effusion. Medication Diluted definity 3ml given slow IV push to enhance endocardial definition. Performed a rapid injection of agitated mix of 9 cc saline and 1cc air to assess for atrial septal defect. MMode/2D Measurements & Calculations LVIDd: 5.1 cm IVSd: 0.91 cm Ao root diam: 3.1 cm LVIDs: 4.0 cm LVPWd: 0.91 cm LA dimension: 3.5 cm FS: 22.4 % LAV(MOD-bp): 61.0 ml LVAd ap4: 34.2 cm2 SV(MOD-sp4): 57.2 ml LAV(MOD-bp) Indexed: 28.9 ml/m2 LVLd ap4: 7.7 cm LAV(MOD-sp2): 61.0 ml EDV(MOD-sp4): 123.1 ml LAV(MOD-sp4): 50.9 ml EDV(sp4-el): 128.3 ml LVAs ap4: 23.5 cm2 LVLs ap4: 6.8 cm ESV(MOD-sp4): 65.9 ml ESV(sp4-el): 68.4 ml EF(MOD-sp4): 46.5 % EF(sp4-el): 46.7 % SV(sp4-el): 59.9 ml LA A4 area: 18.9 cm2 RA A4 area: 14.1 cm2 TAPSE: 1.7 cm Time Measurements MV dec time: 0.19 sec Doppler Measurements & Calculations MV E max thor: 70.1 cm/sec Lat Peak E' Thor: 7.5 cm/sec Med Peak E' Thor: 4.6 cm/sec MV A max thor: 104.4 cm/sec E/E' lat: 9.4 E/E' med: 15.3 MV E/A: 0.67 MV V2 max: 121.4 cm/sec MV P1/2t max thor: 93.9 cm/sec Ao V2 max: 137.9 cm/sec MV max P.9 mmHg MV P1/2t: 82.9 msec Ao max P.6 mmHg MV V2 mean: 73.6 cm/sec Ao V2 mean: 90.2 cm/sec MV mean P.6 mmHg MV dec slope: 331.8 cm/sec2 Ao mean P.8 mmHg MV V2 VTI: 24.5 cm MVA(P1/2t): 2.7 cm2 Ao V2 VTI: 28.5 cm AV (velocity ratio): 0.79 LV V1 max: 111.9 cm/sec PA V2 max: 76.3 cm/sec LV V1 max P.0 mmHg LV V1 mean P.7 mmHg LV V1 mean: 76.9 cm/sec LV V1 VTI: 22.6 cm ECHO/Echo Complete W/ Contrast Interpretation Summary The estimated ejection fraction is 55 %. Mild mitral annular calcification. Aortic sclerosis, no stenosis. Trivial pericardial effusion. Bubble contrast study negative for right to left interatrial shunt. The study was technically difficult. Contrast injection was performed. Ordering Physician: Dolores Fukn Referring Physician: Mag Olmos M.D. Performed By: Adarsh Hudson RCS
[2024-01-21 16:19] LABS: Magnesium 1.7 mg/dL (1.6-2.6)
[2024-01-21] MEDS: 0.9% Normal Saline (1000mL) 1,000 ML 100 ML IV (17:27)
[2024-01-21] MEDS: Insulin Lispro 100 UNIT/ML INSULN.PEN SC ×2 (17:55→20:57)
[2024-01-21 18:09] LABS: Bedside Glucose 197 mg/dL (74-106)
[2024-01-21] MEDS: 0.9% Saline Lock 10 ML Syringe IV (19:01)
[2024-01-22 00:29] VITALS: BMI 30.3
[2024-01-22 02:29] VITALS: BP 130/75; PULSE 87; RESP 17; TEMP 36.5; O2SAT 96
[2024-01-22 02:31] VITALS: RESP 18; O2SAT 97
[2024-01-22 04:18] LABS: Bedside Glucose 194 mg/dL (74-106)
[2024-01-22 05:49] VITALS: BMI 30.2
[2024-01-22] MEDS: Insulin Lispro 100 UNIT/ML INSULN.PEN SC ×2 (07:06→11:40)
[2024-01-22 07:26] LABS: Bedside Glucose 203 mg/dL (74-106)
[2024-01-22 07:33] VITALS: PULSE 68; RESP 20
[2024-01-22] MEDS: Budesonide Respules 0.5 MG/2 ML AMPUL.NEB. INHALATION (07:33)
[2024-01-22 08:34] VITALS: BP 133/72; PULSE 96; RESP 16; TEMP 36.6; O2SAT 95
[2024-01-22] MEDS: Aspirin 81 MG TAB.CHEW PO (08:43)
[2024-01-22] MEDS: DULoxetine Hcl 60 MG Capsule PO (08:43)
[2024-01-22] MEDS: Pentoxifylline 400 MG Tablet PO (08:44)
[2024-01-22] MEDS: Enoxaparin 40 MG/0.4 ML Syringe SC (08:44)
[2024-01-22 08:47] LABS: Absolute Neutrophil Count 4.9 X10^3/uL (2.0-7.7); Basophil# 0.06 X10^3/uL; Basophil% 0.7 % (0-1); Eosinophil# 0.26 X10^3/uL; Eosinophils% 3.2 % (0-5); Hematocrit 47.8 % (40-54); Hemoglobin 15.6 g/dL (13.0-16.5); Lymphocyte % 26.7 % (19-41); Mean Corp Hgb Conc 32.6 g/dL (32-36); Mean Corpuscular Hgb 29.3 pg (27.0-32.0); Mean Corpuscular Volume 89.8 fL (80-94); Mean Platelet Vol. 10.4 fl (6.2-12.0); Monocyte# 0.79 X10^3/uL; Monocyte% 9.6 % (0-10); NRBC Flagged by Analyzer 0 % (0-5); Neutrophil % 59.4 % (47-70); Platelet Count 245 K/mm3 (150-450); RBC Distribution Width CV 13.1 % (11.6-14.6); Red Blood Count 5.32 M/mm3 (4.6-6.2); White Blood Count 8.2 K/mm3 (4.4-11.0)
[2024-01-22 09:23] LABS: ALB/GLOB Ratio 0.9 RATIO (0.9-2.4); AST(SGOT) 14 U/L (15-37); Alanine Aminotransfer ALT/SGPT 20 U/L (16-61); Albumin, Serum 3.1 g/dL (3.2-5.0); Alkaline Phosphatase 74 U/L (45-117); Anion Gap 3 (5-15); BUN 12 mg/dL (7-18); BUN/Creat Ratio 17.9 RATIO (10-20); Calcium,Total 8.8 mg/dL (8.5-10.1); Chloride 107 mmol/L (98-107); Cholesterol 95 mg/dL (200); Creatinine, Serum 0.67 mg/dL (0.70-1.30); EST Glomerular Filtration Rate 125 mL/min (>60); Est Glom Filt Rate - Afr Amer 151 mL/min (>60); Globulin 3.5 g/dL (2.2-4.2); Glucose 207 mg/dL (74-106); High Density Lipoprotein 36 mg/dL; Protein, Total 6.6 g/dL (6.4-8.2); Sodium Level 137 mmol/L (136-145); Thyroid Stim Hormone (TSH) 0.83 uIU/mL (0.358-3.74); Triglycerides 104 mg/dL; Very Low Density Lipoprotein 21 mg/dL (5-40)
--- NOTE | 2024-01-22 11:48 | CASEMGMT ---
SW completed a PHQ 9 with patient as he may have had a TIA. Patient scored a 1 which indicates minimal depression. Patient denied any need for counseling resources. Cecy BUCHANAN
[2024-01-22 12:06] LABS: Bedside Glucose 298 mg/dL (74-106)
[2024-01-22 13:11] LABS: Hemoglobin A1c 8.5 % (3.8-5.6)
--- NOTE | 2024-01-22 14:05 | STROKE.CONS ---
Assessment and Plan: Stroke Assessment/Plan #Transient aphasia, likely 2/2 TIA - Start ASA 81 daily -Please give Plavix 300mg x1 now. Followed Plavix 75mg daily for three weeks to start on 01/22. -Continue Atorvastatin 80 daily -goal LDL<70, HbA1c<7 -MRI showed no stroke -CTA head/neck: no severe stenosis -TTE unremarkable -Please order 30 day cardiac event monitor -BP control: goal normotension 120/80 -need to fu with? PCP in 1 week and neurology in 4-6 weeks HPI Consult Data Date of Consult: 01/22/24 HPI Narrative HPI Narrative: 68 yo M w PMH DM, depression, HTN, HLD, COPD, prior smoker tristen presents with transient inability to speak. Was eating lunch yesterday at 11am when had a transient episode of inability to speak. Knew what he wanted to say but couldn't get words out. Symptoms lasted for a total of 1.5-2 hours. No other symptoms including vision loss, weakness, gait imbalance, numbness. Currently feels back to normal. NIHSS 0 upon arrival. Not on any AC. Initial BP 147/77. LLD <70, HbA1c 8.5. [facility], LAT[facility] Medical History (Updated 01/21/24 @ 20:[address] Dolores Funk MD) HLD (hyperlipidemia) HTN (hypertension) Obesity Vitamin deficiency High triglycerides Hearing problem COPD (chronic obstructive pulmonary disease) Diabetes Cataract Home Medications ?Medication ?Instructions ?Recorded ?Last Taken ?Type amlodipine 5 mg tablet 5 mg PO DAILY 07/19/17 01/21/24 History flash glucose scanning reader #1 ea 10/14/19 Unknown Rx (FreeStyle Channing 14 Day [place]) pentoxifylline 400 mg 400 mg PO DAILY 07/12/21 01/21/24 History tablet,extended release flash glucose sensor (FreeStyle #6 ea 02/27/22 Unknown Rx Channing 14 Day Sensor kit) atorvastatin 80 mg tablet 80 mg PO DAILY 09/06/22 01/21/24 History multivitamin (Daily Multi-Vitamin 1 tab PO DAILY 11/27/22 01/21/24 History tablet) lisinopril 20 mg tablet 20 mg PO DAILY #90 tabs 12/27/23 01/21/24 Rx pen needle, diabetic 33 gauge x #100 ea 12/27/23 Unknown Rx (Comfort EZ Pen [place]) cholecalciferol (vitamin D3) 125 125 mcg PO QODAY 01/21/24 01/21/24 History mcg (5,000 unit) tablet (Vitamin D3) diclofenac sodium 1 % topical gel 4 g topical Q3H PRN NEUROPATHY 01/21/24 01/21/24 History (Arthritis Pain (diclofenac)) duloxetine 60 mg capsule,delayed 60 mg PO DAILY 01/21/24 01/21/24 History release insulin aspart U-100 100 unit/mL 1 sliding scale dose subcut TID 01/21/24 01/21/24 History (3 mL) subcutaneous pen (Novolog FlexPen U-100 Insulin aspart) insulin degludec 200 unit/mL (3 55 unit subcut DAILY 01/21/24 01/21/24 History mL) subcutaneous pen (Tresiba FlexTouch U-200 insulin) metformin 500 mg tablet 1,000 mg PO BID 01/21/24 01/21/24 History Allergy/AdvReac Type Severity Reaction Status Date / Time No Known Allergies Allergy Verified 01/17/24 09:48 Family History Father Arthritis Cancer Diabetes Mother Age related osteoporosis Other Kidney disease Surgical History H/O hernia repair Social History (Updated 01/21/24 @ 20:[address] Dolores Funk MD) household members: spouse Smoking Status: Former smoker alcohol intake: current alcohol intake frequency: a few times a month Alcohol type: beer substance use type: does not use what type of physical activity do you participate in: none Vital Signs Vital Signs Vital Signs: 01/21/24 15:00 01/21/24 16:00 01/21/24 16:31 Temperature 97.8 F 97.8 F Temperature Source Temporal Oral Pulse Rate 106 H 106 H 107 H Pulse Strength Respiratory Rate 16 16 16 Respiratory Effort Respiratory Depth Respiratory Pattern Blood Pressure 144/86 H 157/87 H 134/70 H Blood Pressure Mean 105 110 91 Blood Pressure Source Monitor Blood Pressure Position Semi-Fowlers Blood Pressure Location Left Arm Pulse Ox 98 96 95 Oxygen Delivery Method Room Air Room Air Room Air Fraction of Inspired Oxygen (FIO2) 01/21/24 17:58 01/21/24 20:30 01/21/24 20:35 Temperature 98.0 F Temperature Source Oral Pulse Rate 90 Pulse Strength Respiratory Rate 17 Respiratory Effort Respiratory Depth Respiratory Pattern Blood Pressure 124/73 H Blood Pressure Mean 90 Blood Pressure Source Monitor Blood Pressure Position Semi-Fowlers Blood Pressure Location Left Arm Pulse Ox 96 Oxygen Delivery Method Room Air Room Air Room Air Fraction of Inspired Oxygen (FIO2) 01/21/24 22:00 01/22/24 02:29 01/22/24 02:31 Temperature 97.7 F L Temperature Source Oral Pulse Rate 87 Pulse Strength Normal (2+) Respiratory Rate 17 18 Respiratory Effort Normal Non-Labored Respiratory Depth Normal Respiratory Pattern Normal Blood Pressure 130/75 H Blood Pressure Mean 93 Blood Pressure Source Monitor Blood Pressure Position Semi-Fowlers Blood Pressure Location Left Arm Pulse Ox 96 97 Oxygen Delivery Method Room Air Room Air Fraction of Inspired Oxygen (FIO2) 01/22/24 07:33 01/22/24 07:33 01/22/24 08:34 Temperature 97.9 F Temperature Source Oral Pulse Rate 68 96 Pulse Strength Respiratory Rate 20 H 16 Respiratory Effort Respiratory Depth Respiratory Pattern Normal Blood Pressure 133/72 H Blood Pressure Mean 92 Blood Pressure Source Monitor Blood Pressure Position Semi-Fowlers Blood Pressure Location Left Arm Pulse Ox 95 Oxygen Delivery Method Room Air Room Air Fraction of Inspired Oxygen (FIO2) 98 01/22/24 08:38 Temperature Temperature Source Pulse Rate Pulse Strength Normal (2+) Respiratory Rate Respiratory Effort Respiratory Depth Respiratory Pattern Blood Pressure Blood Pressure Mean Blood Pressure Source Blood Pressure Position Blood Pressure Location Pulse Ox Oxygen Delivery Method Fraction of Inspired Oxygen (FIO2) Weight Weight: 95.6 kg Body Mass Index (BMI) 30.2 NIHSS NIHSS Nursing Documentation NIHSS Nursing Documentation: NIHSS: Ischemic Stroke/TIA Start: 01/21/24 16:18 Text: For PCU Patients: NIH and Neuro Check every 4 Status: Complete hours, PRN and with change in RN caregiver. Freq: [id number] Protocol: Activity Type Activity Date Activity User E-sign Co-sign Detail Recorded Client Recorded Date Recorded By Document 01/22/24 08:34 [facility] 01/22/24 08:37 01/22/24 08:34 NIH Stroke Scale [NIHSS] A score of 0 is normal or asymptomatic . Total possible score is 42. Inpatient: RN or Physician to activate a stroke alert for onset of new stroke symptoms or with NIHSS increase >/= 3 points. Following change in neurological status, NIHSS will be performed per physician order or more frequently PRN. -1a. Level of Consciousness Alert; keenly responsive -1b. LOC Questions Answers BOTH questions correctly. -1c. LOC Commands Performs both tasks correctly . -2. Best Gaze Normal -3. Visual No visual loss -4. Facial Palsy Normal symmetrical movements -5a. Left Arm No drift; arm holds 90 (or 45 ) degrees for full 10 seconds -5b. Right Arm No drift; arm holds 90 (or 45 ) degrees for full 10 seconds -6a. Left Leg No drift; leg holds 30-degree position for full 5 seconds -6b. Right Leg No drift; leg holds 30-degree position for full 5 seconds -7. Limb Ataxia Absent -8. Sensory Normal; no sensory loss -9. Best Language No aphasia; normal -10. Dysarthria Normal -11. Extinction and Inattention No abnormality -Total 0 Query Text:A score of 0 is normal or asymptomatic. Total possible score is 42 . ED: Notify Physician for NIHSS increase by > / = 3 points. Inpatient: RN or Physician to activate a stroke alert for NIHSS increase of > / = 3 points. Coma Scale [Assess] -Eye Opening Spontaneous -Motor Obeys Commands -Verbal Oriented [Total] -Coma Scale Total 15 Physical Exam Narrative Exam MS: awake, alert, oriented x 3, follows commands, able to name, no aphasia, no dysarthria CN: VFF, EOMI ,?no facial weakness, nml facial sensation M:? Antigravity in all extremities, no drift S: nml to LT in all extremities C: no dysmetria Lab / Micro Data 01/22/24 08:27 01/22/24 08:27 Labs: Laboratory Results - last 24 hr 01/21/24 13:05: Magnesium 1.7 01/21/24 17:51: POC Glucose 197 H 01/21/24 20:57: POC Glucose 194 H 01/22/24 07:04: POC Glucose 203 H 01/22/24 08:27: WBC 8.2, RBC 5.32, Hgb 15.6, Hct 47.8, MCV 89.8, MCH 29.3, MCHC 32.6, RDW Std Deviation 43.0, RDW Coeff of Mike 13.1, Plt Count 245, MPV 10.4, Immature Gran % (Auto) 0.400, Neut % (Auto) 59.4, Lymph % (Auto) 26.7, [place] % (Auto) 9.6, Eos % (Auto) 3.2, Baso % (Auto) 0.7, Absolute Neuts (auto) 4.9, Absolute Lymphs (auto) 2.20, Nucleated RBC % 0, Sodium 137, Potassium 4.0, Chloride 107, Carbon Dioxide 27.0, Anion Gap 3 L, BUN 12, Creatinine 0.67 L, Estim Creat Clear Calc 99.70, Est GFR (MDRD) Af Amer 151, Est GFR (MDRD) Non-Af 125, BUN/Creatinine Ratio 17.9, Glucose 207 H, Hemoglobin A1c 8.5 H, Calcium 8.8, Total Bilirubin 0.50, AST 14 L, ALT 20, Alkaline Phosphatase 74, Total Protein 6.6, Albumin 3.1 L, Globulin 3.5, Albumin/Globulin Ratio 0.9, Triglycerides 104, Cholesterol 95, LDL Cholesterol 38, VLDL Cholesterol 21, HDL Cholesterol 36 L, TSH 0.83 01/22/24 11:38: POC Glucose 298 H Rhythm Strip Rhythm Strip: Sinus Tach Rate: 110 Ectopy: None Imaging Radiology Impression Chest X-Ray 01/21/24 14:35 IMPRESSION: No radiographic evidence of acute cardiopulmonary disease. Electronically Signed: Jesus Boone MD at 15:16 EDT , Brain MRI 01/21/24 16:18 IMPRESSION: Mild periventricular white matter ischemic changes without evidence for acute infarct Electronically Signed: George Rebollar MD at 19:44 EDT , Active Medications Active Medications Active Medications: Current Medications Generic Name Dose Route Start Last Admin Trade Name Freq PRN Reason Stop Dose Admin Acetaminophen 650 mg 01/21/24 16:18 Acetaminophen 325 Mg Tablet PO Q4H PRN PRN Fever, pain 1-06/19 Al Hydroxide/Mg Hydroxide 30 ml 01/21/24 16:18 Mag Hydrox/Al Hydrox/Simeth 30 Ml Udc PO Q6H PRN PRN Gastric Burning Albuterol Sulfate 2.5 mg 01/21/24 16:18 Albuterol 2.5 Mg/3 Ml Vial.Neb. INHALATION Q2H PRN PRN Dyspnea, wheezing Aspirin 81 mg 01/22/24 08:00 01/22/24 08:43 Aspirin 81 Mg Tab.Chew PO 81 mg BREAKFAST MILLIE Administration Atorvastatin Calcium 80 mg 01/22/24 22:00 Atorvastatin Calcium 80 Mg Tablet PO QHS MILLIE Budesonide 0.5 mg 01/21/24 16:18 01/22/24 07:33 Budesonide Respules 0.5 Mg/2 Ml Ampul.Neb. INHALATION 0.5 mg BID.RT MILLIE Administration Dextrose 0 gm 01/21/24 16:18 Dextrose 50%-Water 25 Gm/50 Ml Disp.Syrin IV X1 PRN HYPOGLYCEMIA Protocol Duloxetine HCl 60 mg 01/22/24 10:00 01/22/24 08:43 Duloxetine Hcl 60 Mg Capsule PO 60 mg DAILY MILLIE Administration Enoxaparin Sodium 40 mg 01/22/24 10:00 01/22/24 08:44 Enoxaparin 40 Mg/0.4 Ml Syringe SC 40 mg DAILY MILLIE Administration Glucagon 1 mg 01/21/24 16:18 Glucagon 1 Mg/Ml Syringe IM X1 PRN HYPOGLYCEMIA Guaifenesin 20 ml 01/21/24 16:18 Guaifenesin 10 Ml Udc (200mg/10ml) PO Q4H PRN PRN COUGH Hydralazine HCl 5 mg 01/21/24 16:18 Hydralazine 20 Mg/Ml Vial IV 01/22/24 16:18 Q30M PRN maintain BP parameters with HR <60 Sodium Chloride 250 mls @ 15 mls/hr 01/21/24 16:22 IV .[id number] PRN Additional IVPB Infusion Sodium Chloride 250 mls @ 15 mls/hr 01/21/24 16:22 IV .[id number] PRN Saline Flush Insulin Glargine 55 unit 01/22/24 10:00 01/22/24 08:43 Insulin Glargine-Yfgn 100 Unit/Ml Pen SC Not Given DAILY MILLIE Insulin Human Lispro 0 unit 01/21/24 16:18 01/22/24 11:40 Insulin Lispro 100 Unit/Ml Insuln.Pen SC 4 u ACHS MILLIE Administration Protocol Melatonin 3 mg 01/21/24 16:18 Melatonin 3 Mg Tablet PO QHS PRN PRN INSOMNIA Ondansetron HCl 4 mg 01/21/24 16:18 Ondansetron 4 Mg/2 Ml Vial IV Q8H PRN PRN NAUSEA/VOMITING Pentoxifylline 400 mg 01/22/24 10:00 01/22/24 08:44 Pentoxifylline 400 Mg Tablet PO 400 mg DAILY MILLIE Administration Prochlorperazine Edisylate 5 mg 01/21/24 16:18 Prochlorperazine 10 Mg/2 Ml Vial IV Q4H PRN PRN Breakthrough Nausea/Vomiting Senna/Docusate Sodium 2 tablet 01/21/24 16:18 Senna/Docusate Sodium 1 Tablet PO BID PRN PRN Constipation Sodium Chloride 10 - 40 ml 01/21/24 16:22 01/21/24 19:01 0.9% Saline Lock 10 Ml Syringe IV 10 ml UD PRN Administration SALINE FLUSH
[2024-01-22 14:26] VITALS: BP 134/76; PULSE 100; RESP 17; TEMP 36.8; O2SAT 95
--- NOTE | 2024-01-22 15:12 | CASEMGMT ---
Met with patient to complete FELIZ form. FELIZ form explained to?patient who voiced understanding and signed form. Original form placed in pt?s chart and copy provided to patient.? Nuris Cavazos, Discharge Planning Asst
--- NOTE | 2024-01-22 15:28 | PCM.DC.SUM ---
Providers Date of Admission: 01/21/24 Date of Discharge: 01/22/24 Primary Care Physician: Dr. Mag Olmos, Consultations 01/21/24 16:18 Consult: Tele-Neurology Routine Consulting Provider: [facility] Reason for Consult: Acute Ischemic Stroke/TIA EMERGENT Consult: No MD Notified: Yes Date Notified: 01/21/24 Time Notified: 17:38 Method of Notification: Answering Service Nursing Unit Staff Notify [facility] of Tele-Neurology Consult: Yes Reason For Visit: TIA Diagnosis Discharge Diagnosis (1) Transient ischemic attack: Status: Acute Code(s): G45.9 - Transient cerebral ischemic attack, unspecified Medications at Discharge Home Medications amlodipine 5 mg tablet 5 mg PO DAILY 07/19/17 flash glucose scanning reader (Emay SoftcomStyle Channing 14 Day [place]) #1 ea 10/14/19 pentoxifylline 400 mg tablet,extended release 400 mg PO DAILY 07/12/21 flash glucose sensor (FreeStyle Channing 14 Day Sensor kit) #6 ea 02/27/22 atorvastatin 80 mg tablet 80 mg PO DAILY 09/06/22 multivitamin (Daily Multi-Vitamin tablet) 1 tab PO DAILY 11/27/22 lisinopril 20 mg tablet 20 mg PO DAILY #90 tabs 12/27/23 pen needle, diabetic 33 gauge x 5/32 (Comfort EZ Pen [place]) #100 ea 12/27/23 cholecalciferol (vitamin D3) 125 mcg (5,000 unit) tablet (Vitamin D3) 125 mcg PO QODAY 01/21/24 diclofenac sodium 1 % topical gel (Arthritis Pain (diclofenac)) 4 g topical Q3H PRN NEUROPATHY 01/21/24 duloxetine 60 mg capsule,delayed release 60 mg PO DAILY 01/21/24 insulin aspart U-100 100 unit/mL (3 mL) subcutaneous pen (Novolog FlexPen U-100 Insulin aspart) 1 sliding scale dose subcut TID 01/21/24 insulin degludec 200 unit/mL (3 mL) subcutaneous pen (Tresiba FlexTouch U-200 insulin) 55 unit subcut DAILY 01/21/24 metformin 500 mg tablet 1,000 mg PO BID 01/21/24 aspirin 81 mg chewable tablet 81 mg PO DAILY #30 tabs 01/22/24 clopidogrel 75 mg tablet 75 mg PO DAILY #21 tabs 01/22/24 Hospital Course Operations None Procedures 2-D Echocardiogram Summary of Care Provided Minutes Spent on Discharge: 55 Hospital Course: Patient is a 68-year-old male with a past medical history as outlined was admitted through the ED on 01/21/2024 with a complaint of slurred speech and lower extremity weakness. It happened on the day of presentation he could form ideas but was having difficulty expressing his thoughts. He denied any recent falls or any other symptoms. His symptoms subsequently resolved but he came into the ED. On admission in the ED NIH stroke score was 0 and he was back to his baseline. 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 EKG showed no acute ST changes. He was admitted and managed for TIA to rule out a stroke. He was placed on aspirin and high intensity statin. He had an MRI of the brain which showed no evidence of a stroke. Neurology was consulted. He had 2D echocardiogram which showed EF of 55% with normal diastole and negative bubble contrast study. Neurology reviewed patient and felt that his symptoms were likely due to TIA. Per neurology recommendations patient was placed on aspirin and to be on Plavix 75 mg daily for 3 weeks. He was given a loading dose of Plavix 300 mg x 1 prior to discharge. He was also continued on his high intensity statin. He is to follow-up with his primary care doctor within 1 week and to follow-up with neurology within 1 month. Patient was seen and examined prior to discharge. He felt well and had no complaints. He had an uneventful night. Review of systems otherwise negative. Labs and vitals reviewed. Home medications reviewed and reconciled. Of note he was also given a 30-day event monitor per Neurology recommendations, and this is to be sent to [facility] to be read. Physical Exam Const alert, oriented x3, no apparent distress and average body habitus General Appearance: cooperative, comfortable, well kempt and well developed Orientation / Consciousness: awake Exam Limitations: no limitations HEENT normocephalic, head/scalp atraumatic, hearing grossly normal bilaterally and moist oral mucous membranes Mouth: oral and palatal mucosa normal Eyes PERRL and EOMs intact bilaterally Neck no lymphadenopathy, supple and no JVD Resp normal respiratory effort, no retractions, no use of accessory muscles and clear to auscultation bilaterally Cardio regular rate, regular rhythm, S1 normal heart sound, S2 normal heart sound and no murmurs GI normal to inspection, nondistended, normoactive bowel sounds, soft to palpation and non-tender Extremity normal to inspection, full ROM and no clubbing, cyanosis or edema Skin no rashes or lesions noted, no wounds and skin turgor normal Neuro oriented x3, CN's II-XII intact bilaterally, moves all extremities and no focal motor deficits Sensorium / Orientation: awake Motor Exam: strength 5/5 throughout Psych affect normal Weight / BMI Weight Weight: 210 lb 12.191 oz Body Mass Index (BMI) 30.2 ABG / Lab / Microbiology Data 01/22/24 08:27 01/22/24 08:27 Laboratory: Laboratory Results - last 24 hr 01/21/24 13:05: Magnesium 1.7 01/21/24 17:51: POC Glucose 197 H 01/21/24 20:57: POC Glucose 194 H 01/22/24 07:04: POC Glucose 203 H 01/22/24 08:27: WBC 8.2, RBC 5.32, Hgb 15.6, Hct 47.8, MCV 89.8, MCH 29.3, MCHC 32.6, RDW Std Deviation 43.0, RDW Coeff of Mike 13.1, Plt Count 245, MPV 10.4, Immature Gran % (Auto) 0.400, Neut % (Auto) 59.4, Lymph % (Auto) 26.7, [place] % (Auto) 9.6, Eos % (Auto) 3.2, Baso % (Auto) 0.7, Absolute Neuts (auto) 4.9, Absolute Lymphs (auto) 2.20, Nucleated RBC % 0, Sodium 137, Potassium 4.0, Chloride 107, Carbon Dioxide 27.0, Anion Gap 3 L, BUN 12, Creatinine 0.67 L, Estim Creat Clear Calc 99.70, Est GFR (MDRD) Af Amer 151, Est GFR (MDRD) Non-Af 125, BUN/Creatinine Ratio 17.9, Glucose 207 H, Hemoglobin A1c 8.5 H, Calcium 8.8, Total Bilirubin 0.50, AST 14 L, ALT 20, Alkaline Phosphatase 74, Total Protein 6.6, Albumin 3.1 L, Globulin 3.5, Albumin/Globulin Ratio 0.9, Triglycerides 104, Cholesterol 95, LDL Cholesterol 38, VLDL Cholesterol 21, HDL Cholesterol 36 L, TSH 0.83 01/22/24 11:38: POC Glucose 298 H Radiography Diagnostic Testing: Radiology Impression Brain MRI 01/21/24 16:18 IMPRESSION: Mild periventricular white matter ischemic changes without evidence for acute infarct Electronically Signed: George Rebollar MD at 19:44 EDT Reading Location ID and State: [address] [place] [address] Tel , Service support , Echocardiogram 01/21/24 16:18 Interpretation Summary The estimated ejection fraction is 55 %. Mild mitral annular calcification. Aortic sclerosis, no stenosis. Trivial pericardial effusion. Bubble contrast study negative for right to left interatrial shunt. The study was technically difficult. Contrast injection was performed. Ordering Physician: Dolores Funk Referring Physician: Mag Olmos M.D. Performed By: Adarsh Hudson RCS D/C Instructions Discharge Diet: Low fat / Low cholesterol Discharge Activity: Return to Normal Activity Weight Bearing Status: Weight bearing as tolerated Call your doctor if you observe: Fever of 101 or Higher, Shortness of breath, Dizziness, Swelling in the ankles and Chest pain Meaningful Use Info Meaningful Use Meaningful Use Diagnoses (Choose all that apply): None applicable Ischemic Stroke Statin Dosing Therapy Reference: STATIN DOSE THERAPY REFERENCE: * Patients > 75 years receive moderate or high dose statin therapy. * Patients 75 years or YOUNGER should receive HIGH intensity statin dose unless contraindicated. You will be required to document reason for non-treatment if statin daily dose does not meet guidelines. HIGH DOSE STATIN THERAPY DAILY Atorvastatin > than or = to 40 mg Rosuvastatin > than or = to 20 mg Amlodipine + Atorvastatin > than or = to 2.5/40 mg Ezetimibe + Simvastatin 10/80 mg Simvastatin 80mg Discharge Plan Admission Admit Date/Time: 01/21/24 14:54 Primary Reason for Your Visit: TIA Attending Provider: Linda Rosales Primary Care Provider: Mag Olmos Consulting Providers: Jordy Stephens; Sirisha Suarez; Isabel Calderón; Yesenia Pan; June Urena; oJo Rothman; Mehnaz Mcdermott; Alex Velásquez; Desmond Jeter; Jessa Nuno; Gurmeet Loredo; Jaja Lyons; Hamilton Bragg; Shirlenerasta Price; Delano Calero; Cj Fisher; Chinedu Cueto; Fauzia Connelly; Vanessa Sears; Dolores Funk Instructions Patient Instructions: TIA Dc Discharge Orders/Prescriptions Prescriptions: New aspirin 81 mg tablet,chewable 81 mg PO DAILY Qty: 30 2RF clopidogrel 75 mg tablet 75 mg PO DAILY Qty: 21 0RF Continued (DME) FreeStyle Channing 14 Day [place] Misc See Rx Instructions .ROUTE .MEDSUPPLY Qty: 1 0RF Rx Instructions: As directed pentoxifylline 400 mg tablet extended release 400 mg PO DAILY (DME) FreeStyle Channing 14 Day Sensor Kit See Rx Instructions .ROUTE .MEDSUPPLY Qty: 6 3RF Rx Instructions: As directed atorvastatin 80 mg tablet 80 mg PO DAILY multivitamin [Daily Multi-Vitamin] Tablet 1 tab PO DAILY amlodipine 5 MG tablet 5 mg PO DAILY cholecalciferol (vitamin D3) [Vitamin D3] 125 mcg (5,000 unit) tablet 125 mcg PO QODAY metformin 500 mg tablet 1,000 mg PO BID insulin aspart U-100 [Novolog FlexPen U-100 Insulin] 100 unit/mL (3 mL) insulin pen 1 sliding scale dose subcut TID MDD 95 Protocol: 6. Sliding Scale Insulin Custom Condition: mg/dl range Dose/Route: Number of Units Condition: 200-220 Dose/Route: 20 Condition: 220-249 Dose/Route: 22 Condition: 250-260 Dose/Route: 23 Condition: 260 Dose/Route: 24 Protocol Text: Custom Sliding Scale Patient Comments: SLIDING SCALE SEAMS TO BE GUESTIMATE duloxetine 60 mg capsule,delayed release(DR/EC) 60 mg PO DAILY insulin degludec [Tresiba FlexTouch U-200] 200 unit/mL (3 mL) insulin pen 55 unit SC DAILY diclofenac sodium [Arthritis Pain (diclofenac)] 1 % gel 4 g topical Q3H PRN (Reason: NEUROPATHY) lisinopril 20 mg tablet 20 mg PO DAILY Qty: 90 1RF (DME) Comfort EZ Pen [place] 33 gauge x 5/32 needle See Rx Instructions .ROUTE .MEDSUPPLY Qty: 100 6RF Rx Instructions: 4 times daily Other Ambulatory Orders: 30 Day Event Recorder Preventi (Urgent) Timeframe: 1 Day Facility: [facility] - Location: Cardiovascular Services Ordered By: Dr. Linda Rosales Referrals / Follow Up: Mag Olmos DO [Primary Care Provider] - Within 1 Week Norman Dominguez MD [Non-Staff -Ordering Privileges] - Within 1 Month Disposition Disposition (needs filled in before D/C Order can be placed): Home, Self Care Charges/Coding Visit Charges Inpatient E&M: 59379 Disch Hosp >30min
--- NOTE | 2024-01-22 15:43 | CHAPLAIN ---
Type of Pastoral Visit ___ Initial Visit _x__ Follow-up Visit ___ On-call Visit ___ General Patient Visit ___ Spiritual Assessment ___ Family Conference ___ Bereavement ___ Rapid Response ___ Code Blue ___ Other (describe below) Pastoral Care Referral From _x__ Patient ___ Family ___ Nurse ___ Physician ___ Fish Housekeeper ___ Vacuum Forming Machine Operator ___ Other (describe below) Sacrament/Intervention _x__ Active listening ___ Anointing ___ Scientologist ___ Bereavement ___ Communion ___ Natalya exploration ___ ___ Life review ___ Prayer ___ Reconciliation ___ Sacrament of Sick ___ Supportive presence ___ Wedding ___ Other (describe below) Pastoral Comments patient was seen for a stroke alert yesterday; today the pt reports feeling well and that he did not have a stroke per evaluation; pt states he is happy to be going home which is expected yet for today; pt has no other needs or concerns per his report
--- NOTE | 2024-01-22 16:08 | CASEMGMT ---
Patient has order for discharge. RN CM in to discuss needs at discharge. Patient denies need or help at discharge. Patient had no further questions or concerns.
[2024-01-22] MEDS: Clopidogrel Bisulfate 300 MG Tablet PO (16:26)
[2024-01-22 16:51] VITALS: BMI 30.2
== END 2024-01-22 15:26 | disposition home or self-care (01) ==
LOC: ED 14:09 → PCU 16:07
PROVIDERS: Admitting Provider Family Medicine; Emergency Provider Emergency Medicine; PCP Internal Medicine; Visit Provider Student in an Organized Health Care Education/Training Program
DX: G45.9 Transient cerebral ischemic attack, unspecified (principal); J44.9 Chronic obstructive pulmonary disease, unspecified; E11.40 Type 2 diabetes mellitus with diabetic neuropathy, unspecified; Z79.4 Long term (current) use of insulin; R47.81 Slurred speech; Z87.891 Personal history of nicotine dependence; R29.898 Other symptoms and signs involving the musculoskeletal system; I10 Essential (primary) hypertension; E78.00 Pure hypercholesterolemia, unspecified; Z79.899 Other long term (current) drug therapy; Z79.84 Long term (current) use of oral hypoglycemic drugs; F41.9 Anxiety disorder, unspecified; F32.A Depression, unspecified; E66.9 Obesity, unspecified; Z68.31 Body mass index [BMI] 31.0-31.9, adult; R47.01 Aphasia; Z79.02 Long term (current) use of antithrombotics/antiplatelets
CPT/HCPCS: 36415; 70450; 70496; 70498; 70551; 71045; 80048; 80053; 80061; 82962; 83036; 83735; 84443; 84484; 85025; 85610; 85730; 93005; 93306; 94640; 94668; 96360; 96361; 96372; 97161; 97165; 97802; 99221; 99283; J7030; Q9957; Q9967; A4216; C8929; G0378

== ENCOUNTER 2024-04-09 11:30 | Outpatient (RCR) | payer MEDICARE, SELFPAY ==
--- NOTE | 2024-02-28 18:52 | HP.PTEVAL_ITS ---
Patient's Visit Information Visit Information Visit Information: SHWETHA CODY is a 68 year old M referred to Physical Therapy by Dr. Mag Olmos DO with a diagnosis of Neuroapthy, LE weakness and poor balance.. Date of Evaluation: 02/28/24 Physical Therapist: Fran Santos, RENAT, OCS, CSCS Visit Plan Frequency: 2-3x /Week Duration: 4-6 Weeks Plan: 2-3x/week for 4-6 weeks for 1. HS and gastroc stretching, general LE strength(home vs gym), FW and lateral weight shifting exercises making it funcitonal, funcitonal head movement up and down exercises. Work all to I home and gym program as desired. PT to look into radial pulse wave possibilities as carrera treatment option for neuropathy if evidence suggests, get on HEP first for helath and general ex and balance. Subjective Subjective: Is hear due to balance. has had PT earlier in the year. Did ot help. 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 It happens intermittently and a couple times per day and this can be unsteady also. Goes away quick. Does not happen in bed. Balance has not bee good for a while. Uses cane to get around. has been no good for a year or more. Multiple falls just losing balance. Has had brain scans and had ministroke last month. TIA. Had therapy for balance and it did not help. is not doing any exercises at home. has neuroapthy from DM for 6 yrs and neuroapthy more this year and getting worse. On meds and working on blood sugar. Some pain in feet at times 4/10if walking alot. Sitting is better. No circulation problem in legs and has had that checked. Sleep is OK. Spends day messing around house. Naps. Basic ADLs are good. Steps are no problem with railing. has anxiety on steps and about getting lightheaded while driving which limits him most. Objective Objective: Walks with cane short steps and avoid sWeight shifting especially FW. Slow and hesitant with steps. [address] to therapy with turning and self corrected. - B hallpike ary testing today. cervical AROM WFL and painfree. LE AROM WFL and without pain. tightness present HS and gastroc at 0 Df and -35 90/90 test B. Sensation grossly at deficit to light touch in feet feeling numby, neuropathic gait pattern. strength is 4/5 in knees, 4- in hips and 4+ in ankles. reflexes 1/3 patella and achilles coordination to reciprocal toe and heel tap shows minor deficits B Balance/Special Test Scores Functional Gait Assessment Score: 22 % Disability: 26.6700 CATSIB Score (Max score 120 seconds): 92 Lower Extremity Functional Score: 23 Goals Goal 1:: FGa to reduce fallr isk Goal Time Frame: 4-6 Weeks Goal 2:: I appropriate HEP to limit future strength adn balance problems Goal Time Frame: 4-6 Weeks Goal 3:: Lightheaded feeling with looking up abolished to facilitate confidence with driving Goal Time Frame: 4-6 Weeks Goal 4:: romberg ec on foam 20 seconds Goal Time Frame: 4-6 Weeks Goal 5:: 43 LEFS Goal Time Frame: 4-6 Weeks Rehabilitation Potential Physical Therapy Diagnosis: unsteadyness and fear limiting activity. Rehabilitation Potential: Fair Anticipated Interventions Patient/Client Instruction: Educate patient on: Condition and Risk Factors For the Purpose of:: To improve nutrient delivery to tissue, To improve muscle performance and motor function, To increase tolerance to activity/condition/position and To improve ability of physical actions for home/community/work/leisure Therapeutic Exercise to Include: Strength training, Balance training, Coordination, Postural training, Flexibilty training and Gait and locomotor training For the Purpose of:: To decrease pain, To increase ROM, To improve nutrient delivery to tissue, To improve muscle performance and motor function, To increase tolerance to activity/condition/position, To improve ability of physical actions for home/community/work/leisure, To improve gait and locomotor functions and To improve balance Comment: RPW if evidence suggests effectiveness. For the Purpose of:: To improve nutrient delivery to tissue Text: Thank you for the opportunity to evaluate your patient. For Medicare and Medicare HMO plans, please review the plan of care and approve it. It will need to be FAXED BACK to us at [phone] for Medicare purposes. For Medicare only, by signing this I certify the plan of care. Please let me know if there are questions or concerns regarding this plan of care. Physician Signature: Date:
--- NOTE | 2024-04-09 11:52 | HP.PTDCSUM ---
Discharge Summary D/C summary: It has been my pleasure to treat SHWETHA CODY referred by Dr. Mag Olmos DO, with the diagnosis of Neuroapthy, LE weakness and poor balance. for a total of 6 visit(s). Discharge Date: 04/09/24 Please see the following information for a summary of their discharge status. Subjective Subjective: I am much better. Doing HEP; they help. Alot better with walking, carries cane but does not need it. Not as fatigue adn walking further. Started walking neighbors dog. No falls. Not much pain. To doctor sometime soon. Activities at home are pretty normal. No problem with lightheaded ness lately Pain Bilateral Lower Extremity: Pain Intensity (Out of 10): Unrated Overall Improvement % Improvement: 50 Objective Objective/Function: _4 on FGA and 23 sec improvement on foam ec stance. Pt feeling steadier adn willing to keep up with HEP. Goals Goal 1:: FGa to reduce fallr isk Goal Progress: Goal Met Goal 2:: I appropriate HEP to limit future strength adn balance problems Goal Progress: Goal Met Goal 3:: Lightheaded feeling with looking up abolished to facilitate confidence with driving Goal Progress: Goal Met Goal 4:: romberg ec on foam 20 seconds Goal Progress: Goal Met Goal 5:: 43 LEFS Goal Progress: Goal Met Plan Plan: d/c to HEP D/C Information d/c sentence: If there are questions or concerns regarding this patient's physical therapy, please feel free to call me at [phone]. Thank you for the referral of this patient. Sincerely, Fran Santos, DPT, OCS, CSCS Balance/Gait/Functional tests Balance/Special Test Scores Functional Gait Assessment Score: 26 % Disability: 13.3400 CATSIB Score (Max score 120 seconds): 115 Lower Extremity Functional Score: 44 Improvement % Improvement: 50
== END 2024-04-09 19:00 | disposition home or self-care (01) ==
LOC: PT 11:30
PROVIDERS: PCP Internal Medicine; Referring Provider Internal Medicine; Visit Provider Internal Medicine
DX: E11.40 Type 2 diabetes mellitus with diabetic neuropathy, unspecified (principal); R29.898 Other symptoms and signs involving the musculoskeletal system; R26.9 Unspecified abnormalities of gait and mobility
CPT/HCPCS: 97110; 97162; 97530

== ENCOUNTER → 2024-07-28 | Outpatient (CLI) | payer MEDICARE, SELFPAY ==
[2024-07-28 11:09] LABS: Absolute Lymphocyte Count 3.47 X10^3/uL (0.83-4.51); Absolute Neutrophil Count 6.2 X10^3/uL (2.0-7.7); Basophil% 0.9 % (0-1); Eosinophils% 2.7 % (0-5); Hematocrit 46.4 % (40-54); Lymphocyte # 3.47 X10^3/ul (0.83-4.51); Lymphocyte % 31.3 % (19-41); Mean Corp Hgb Conc 32.3 g/dL (32-36); Mean Corpuscular Hgb 30.9 pg (27.0-32.0); Mean Corpuscular Volume 95.7 fL (80-94); Mean Platelet Vol. 10.1 fl (6.2-12.0); Monocyte# 0.96 X10^3/uL; Monocyte% 8.7 % (0-10); NRBC Flagged by Analyzer 0 % (0-5); Platelet Count 304 K/mm3 (150-450); RBC Distribution Width CV 13.5 % (11.6-14.6); RBC Distribution Width SD 47.8 fl (35.1-43.9); Red Blood Count 4.85 M/mm3 (4.6-6.2); White Blood Count 11.1 K/mm3 (4.4-11.0)
[2024-07-28 11:38] LABS: Vitamin B12 442 pg/mL (211-911)
[2024-07-28 11:46] LABS: ALB/GLOB Ratio 0.9 RATIO (0.9-2.4); AST(SGOT) 13 U/L (15-37); Alanine Aminotransfer ALT/SGPT 23 U/L (16-61); Albumin, Serum 3.6 g/dL (3.2-5.0); Alkaline Phosphatase 65 U/L (45-117); Anion Gap 4 (5-15); BUN 20 mg/dL (7-18); BUN/Creat Ratio 27.5 RATIO (10-20); Calcium,Total 9.4 mg/dL (8.5-10.1); Chloride 109 mmol/L (98-107); Cholesterol 89 mg/dL (200); Creatinine, Serum 0.73 mg/dL (0.70-1.30); EST Glomerular Filtration Rate 113 mL/min (>60); Est Glom Filt Rate - Afr Amer 137 mL/min (>60); Globulin 3.9 g/dL (2.2-4.2); Glucose 161 mg/dL (74-106); High Density Lipoprotein 46 mg/dL; Potassium 4.1 mmol/L (3.5-5.1); Protein, Total 7.5 g/dL (6.4-8.2); Sodium Level 138 mmol/L (136-145); Triglycerides 82 mg/dL; Very Low Density Lipoprotein 16 mg/dL (5-40)
[2024-07-28 15:23] LABS: Microalbumin:Creatinine Ratio 605.3 mg/g CRE (<30 mg/g CRE)
== END | disposition home or self-care (01) ==
LOC: LAB 09:49 → LABSPEC 14:07
PROVIDERS: PCP Internal Medicine; Referring Provider Nurse Practitioner Family; Visit Provider Nurse Practitioner Family
DX: E11.29 Type 2 diabetes mellitus with other diabetic kidney complication (principal); Z79.4 Long term (current) use of insulin; R80.9 Proteinuria, unspecified
CPT/HCPCS: 36415; 80053; 80061; 82043; 82570; 82607; 84443; 85025

== ENCOUNTER → 2024-12-22 | Outpatient (CLI) | payer MEDICARE, SELFPAY ==
--- NOTE | 2024-12-22 13:05 | CDU_ITS ---
Reason For Study Reason For Study: HX TIA Rt. Velocities/BP Lt. Velocities/BP Prox CCA 109.5/21.7 cm/sec. Prox CCA 142.5/21.7 cm/sec. Mid CCA 92.0/13.0 cm/sec. Mid CCA 102.1/16.3 cm/sec. Dist CCA 107.3/17.3 cm/sec. Dist CCA 85.7/18.1 cm/sec. Prox ICA 86.9/14.5 cm/sec. Prox ICA 71.1/18.1 cm/sec. Mid ICA 84.7/21.1 cm/sec. Mid ICA 71.1/19.9 cm/sec. Dist ICA 102.3/34.2 cm/sec. Dist ICA 83.8/21.7 cm/sec. Rt. ICA/CCA = 1.11. Lt. ICA/CCA = 0.8. Prox ECA 157.2/14.5 cm/sec. Prox ECA 209.8/19.1 cm/sec. Rt. Vert. 53.7/9.8 cm/sec. Lt. Vert. 85.4/21.7 cm/sec. Right Extracranial There is heterogeneous, smooth atherosclerotic plaque noted in the right common carotid artery. There is heterogeneous, irregular atherosclerotic plaque noted in the right internal carotid artery. The atherosclerotic plaque causes acoustic shadowing. There is heterogeneous, irregular atherosclerotic plaque noted in the right external carotid artery. Antegrade flow is noted in the right vertebral artery. Left Extracranial There is heterogeneous, irregular atherosclerotic plaque noted in the left common carotid artery. There is heterogeneous, irregular atherosclerotic plaque noted in the left internal carotid artery. There is heterogeneous, irregular atherosclerotic plaque noted in the left external carotid artery. Antegrade flow is noted in the left vertebral artery. Procedure Carotid Duplex 17941. This is a Carotid Duplex examination using B-mode, color flow and specral Doppler. The exam was diagnostic. Exam performed in department. VL/Carotid Duplex Ultrasound Interpretation Summary Mild (<50%) stenosis right extracranial internal carotid. Limited due to calcif ic shadowing, alternative imaging may be beneficial. Mild (<50%) stenosis left extracranial internal carotid. Patent and antegrade vertebrals bilaterally. Ordering Physician: Mag Olmos Referring Physician: Mag Olmos Performed By: Edi Rosenthal RVT
== END | disposition home or self-care (01) ==
LOC: CVS 12:59
PROVIDERS: PCP Internal Medicine; Referring Provider Internal Medicine; Visit Provider Internal Medicine
DX: Z86.73 Personal history of transient ischemic attack (TIA), and cerebral infarction without residual deficits (principal)
CPT/HCPCS: 93880

== ENCOUNTER → 2025-01-07 | Outpatient (CLI) | payer MEDICARE, SELFPAY ==
--- NOTE | 2025-01-07 12:56 | STRESSREP ---
Stress Test Report Pharmacologic myocardial perfusion stress test. 69-year-old man with a history of renovascular hypertension Resting EKG demonstrates sinus rhythm with a rate of 98 bpm. Resting blood pressure is 142/82 mmHg. 0.4 mg of regadenoson was infused per usual protocol followed by rapid intravenous saline flush injection. Continuous EKG monitoring was performed. The maximum heart rate was 107 bpm which was 71% of max impacted heart rate the maximum workload was 1 metabolic equivalent. At rest there were no ST or T wave changes noted to suggest ischemia and at peak infusion nonspecific ST changes were noted which did not meet the criteria for ischemia. No clinical angina is noted. The final blood pressure was 140/68 mmHg. Myocardial perfusion protocol. 14.1 mCi of technetium 99m sestamibi was injected at rest. 0.4 mg of regadenoson was infused per usual protocol. At peak infusion 44.3 mCi of technetium 99m sestamibi was injected stress images were obtained stress and rest images were reconstructed and compared in the short axis vertical long and horizontal long axis. Gated images were also obtained. Perfusion SPECT analysis: Review of the stress images demonstrate normal uptake of tracer noted in all areas of the myocardium. The resting images similar demonstrated normal uptake of tracer noted in all areas of the myocardium. No areas of reversibility are noted to suggest ischemia and no previous infarct is noted. Gated SPECT analysis: The gated ejection fraction is 57%. Conclusion: Normal pharmacologic myocardial perfusion stress test. Preserved ejection fraction.
== END | disposition home or self-care (01) ==
LOC: CVS 06:20
PROVIDERS: PCP Internal Medicine; Referring Provider Internal Medicine; Visit Provider Internal Medicine
DX: I15.0 Renovascular hypertension (principal); R06.09 Other forms of dyspnea
CPT/HCPCS: 78452; 93017; A9500; A4216; J2785

== ENCOUNTER → 2025-03-11 | Outpatient (CLI) | payer MEDICARE, SELFPAY ==
[2025-03-11 12:30] LABS: Potassium 5.3 mmol/L (3.3-5.1)
== END | disposition home or self-care (01) ==
LOC: LABSPEC 12:06
PROVIDERS: PCP Internal Medicine; Referring Provider Internal Medicine; Visit Provider Internal Medicine
DX: E87.5 Hyperkalemia (principal)
CPT/HCPCS: 84132

== ENCOUNTER → 2025-04-04 | Outpatient (CLI) | payer MEDICARE, SELFPAY ==
--- NOTE | 2025-04-04 08:44 | CT_ITS ---
PROCEDURE: LOW DOSE CT LUNG SCREENING 04/04/2025 REASON FOR EXAM: TOBACCO ABUSE IN REMISSION TECHNIQUE: LOW DOSE CT LUNG SCREENING Coronal and Sagittal reconstruction series were provided. One or more dose reduction techniques were used (e.g., Automated exposure control, adjustment of the mA and/or kV according to patient size, use of iterative reconstruction technique). REFERENCE LINK: [email or web address] Lung-RADS RADIATION DOSE SUMMARY: CTDlvol: 4 mGy DLP: 142 mGycm COMPARISON: No FINDINGS: Central airways are patent. Mild emphysema. Well inflated lungs. No consolidation, effusion or pneumothorax. On the left, no suspicious lung nodules. On the right, no suspicious lung nodules. Unremarkable base of neck and axilla. Thoracic spine degeneration. Normal heart size. No acute vascular pathology. Normal esophagus. No acute chest wall findings. No acute upper abdominal findings. CT/Low Dose CT Lung Screening IMPRESSION: No suspicious lung nodules. Lung-RADS Category: 1 Other Significant Findings: Reading Location: [facility]
== END | disposition home or self-care (01) ==
PROVIDERS: PCP Internal Medicine; Referring Provider Internal Medicine; Visit Provider Internal Medicine
DX: F17.210 Nicotine dependence, cigarettes, uncomplicated (principal)
CPT/HCPCS: 71271

== ENCOUNTER → 2025-09-09 | Outpatient (CLI) | payer MEDICARE, SELFPAY ==
[2025-09-09 10:54] LABS: AST(SGOT) 19 U/L (<=37); Alanine Aminotransfer ALT/SGPT 18 U/L (<=46); Albumin, Serum 3.9 g/dL (3.4-4.8); Alkaline Phosphatase 82 U/L (40-129); Anion Gap 11 (7-18); BUN 16 mg/dL (4-19); BUN/Creat Ratio 18.0 RATIO (10-20); Calcium,Total 9.3 mg/dL (7.6-11.0); Carbon Dioxide 24.4 mmol/L (20.0-29.0); Chloride 104 mmol/L (96-106); Cholesterol 150 mg/dL (<=200); Globulin 3.0 g/dL (2.2-4.2); Glucose 259 mg/dL (70-99); Low Density Lipoprotein Calc. 78 mg/dL; Potassium 4.8 mmol/L (3.5-5.1); Triglycerides 167 mg/dL; Very Low Density Lipoprotein 33 mg/dL (5-40); Vitamin D,25 Hydroxy 82.9 ng/mL (30-100); cholesterol:hdl ratio screen 3.46
[2025-09-09 17:50] LABS: Creatinine, Urine (random) 97.90 mg/dL (39.00-259.00)
[2025-09-09 18:02] LABS: Microalbumin,Random Urine 2780.0 mg/L (<20 mg/L)
== END | disposition home or self-care (01) ==
PROVIDERS: PCP Internal Medicine; Referring Provider Nurse Practitioner Family; Visit Provider Nurse Practitioner Family
DX: E11.29 Type 2 diabetes mellitus with other diabetic kidney complication (principal); Z79.4 Long term (current) use of insulin; R80.9 Proteinuria, unspecified; E55.9 Vitamin D deficiency, unspecified
CPT/HCPCS: 36415; 80053; 80061; 82043; 82306; 82570; 84443